=== PATIENT | male | born 1950 | race Caucasian/White ===

== ENCOUNTER → 2018-05-28 11:19 | Outpatient (CLI) | payer MEDICARE, OTHER, SELFPAY ==
--- NOTE | 2018-05-28 | DI.MRI.S_ITS ---
PROCEDURE: MR CERVICAL SPINE WO CON INDICATIONS: RADICULOPATHY CERVICAL REGION TECHNIQUE: Noncontrast sagittal T1 spin echo and T2 fast spin echo, sagittal STIR, foraminal oblique sagittal T2 fast spin echo, and axial gradient echo or T2 fast spin echo through the cervical spine. COMPARISON: None. FINDINGS: Image quality: Diagnostic Alignment and Curvature: There is normal bony alignment. Bone Marrow: Marrow demonstrates normal overall signal. Spinal Cord: Visualized spinal cord has normal size and signal. No cerebellar tonsillar herniation. Paraspinous Soft Tissues: No paravertebral masses. Prevertebral soft tissues are normal in thickness. C2-C3: No significant abnormality is seen. C3-C4: The disc height is well-preserved. Loss of disc signal is seen at this level. Mild disc osteophyte complex is seen, which is eccentric to the right. Mild bilateral neural foraminal narrowing is seen. Mild central canal narrowing is seen. C4-C5: The disc height is well-preserved. Loss of disc signal is seen at this level. A mild degree of generalized disc osteophyte complex is seen. Mild facet joint hypertrophy is seen. [id number] bilateral neural foraminal narrowing is seen. Mild central canal narrowing is seen. C5-C6: Moderate loss of disc height is seen. Loss of disc signal is seen. Moderate generalized disc osteophyte complex is seen. There is at least moderate bilateral neural foraminal narrowing seen. At least moderate central canal narrowing is seen. C6-C7: Mild to moderate loss of disc height and disc signal are seen. Moderate disc osteophyte complex is seen, which is eccentric to the left. A moderate facet hypertrophy is seen. There is moderate to severe bilateral neural foraminal narrowing seen, left worse than right. Moderate central canal narrowing is seen. C7-T1: No significant abnormality is seen. IMPRESSION: Cervical spine degenerative changes are seen, which are most prominent at the C5-C6 and C6-C7 levels. Dictated by: Eulalio Glasgow M.D. on 05/28/2018 at 13:10 Approved by: Eulalio Glasgow M.D. on 05/28/2018 at 13:17
== END ==
PROVIDERS: PCP Family Medicine; Visit Provider Physical Medicine & Rehabilitation Pain Medicine
DX: M47.22 Other spondylosis with radiculopathy, cervical region (principal)
CPT/HCPCS: 72141

== ENCOUNTER → 2018-08-21 12:24 | Outpatient (CLI) | payer MEDICARE, OTHER, SELFPAY ==
--- NOTE | 2018-08-21 | DI.US.S_ITS ---
PROCEDURE: US PERIPH VENOUS UP EXTREM LT INDICATIONS: PERSONAL HISTORY OF OTHER VENOUS THROMBOSIS TECHNIQUE: Real-time imaging, as well as color and pulse Doppler interrogation, was performed of the left upper extremity deep veins from the inferior neck to the antecubital fossa. COMPARISON: None. FINDINGS: The internal jugular vein, visualized portions of the subclavian vein, axillary, and brachial veins are free of intraluminal thrombus. Where physically possible, the veins are normally compressible. Color and pulse Doppler demonstrate normal intraluminal flow, with expected phasicity and pulsatility. Additional scanning of the cephalic and basilic veins of the superficial system demonstrate normal compressibility, without thrombus. IMPRESSION: No DVT found. Source of pain is not identified at the left upper extremity. Findings called to the ordering health care providers office, to be provided directly to Dr. Darling. Dictated by: Hakeem Yun M.D. on 08/21/2018 at 14:07 Approved by: Hakeem Yun M.D. on 08/21/2018 at 14:11
== END ==
PROVIDERS: PCP Family Medicine; Visit Provider Physical Medicine & Rehabilitation Pain Medicine
DX: M79.652 Pain in left thigh (principal); Z86.718 Personal history of other venous thrombosis and embolism
CPT/HCPCS: 93971

== ENCOUNTER → 2020-01-13 12:55 | Outpatient (CLI) | payer MEDICARE, OTHER, SELFPAY ==
--- NOTE | 2020-01-13 | DI.MRI.S_ITS ---
PROCEDURE: MR LUMBAR SPINE WO CON INDICATIONS: BACK PAIN TECHNIQUE: Noncontrast sagittal T1 spin echo and T2 fast echo, sagittal STIR, axial T1 and T2 fast spin echo through the lumbar spine. In cases with scoliosis, additional coronal T2 fast spin echo may be performed. COMPARISON: [facility] [place], CR, XR LUMBAR SPINE WITH OLBIQUES PLUS FLEXION EXTENSION, 01/06/2020, 10:14. FINDINGS: Image quality: Excellent. Alignment and Curvature: 5 lumbar type vertebral bodies are present by plain film. There is normal bony alignment. Bone Marrow: Marrow is of normal overall signal. No acute vertebral body compression fractures. Mild reactive signal within the endplates adjacent to the L2-L3, L3-L4, L4-L5, and L5-S1 intervertebral discs. Spinal Cord: Conus medullaris terminates at the upper L1 level. Visualized cord demonstrates normal signal and size. Paraspinous Soft Tissues: No paravertebral masses. L1-L2: Normal appearance. L2-L3: Mild disc desiccation and diffuse disc bulge. Mild bilateral facet and ligamentum flavum hypertrophy. Mild canal stenosis. Mild bilateral foraminal stenosis. L3-L4: Mild disc desiccation and diffuse disc bulge. Mild bilateral facet hypertrophy. Mild canal stenosis. Mild bilateral foraminal stenosis. L4-L5: Mild disc desiccation and diffuse disc bulge. Mild bilateral facet hypertrophy. Mild canal stenosis. Mild bilateral foraminal stenosis. L5-S1: Mild disc desiccation and diffuse disc bulge. Mild bilateral facet hypertrophy. Mild canal stenosis. Mild bilateral foraminal stenosis. IMPRESSION: 1. Multilevel degenerative disc and facet disease, as well as ligamentum flavum hypertrophy and epidural lipomatosis. 2. Mild multilevel canal and foraminal stenosis. No neural impingement. Dictated by: Amada Barrett M.D. on 01/13/2020 at 15:06 Approved by: Amada Barrett M.D. on 01/13/2020 at 15:08
== END ==
PROVIDERS: PCP Family Medicine; Referring Provider Family Medicine; Visit Provider Physical Medicine & Rehabilitation Pain Medicine
DX: M54.9 Dorsalgia, unspecified (principal); M51.36 Other intervertebral disc degeneration, lumbar region; M51.37 Other intervertebral disc degeneration, lumbosacral region; M48.061 Spinal stenosis, lumbar region without neurogenic claudication; M48.07 Spinal stenosis, lumbosacral region; E88.2 Lipomatosis, not elsewhere classified
CPT/HCPCS: 72148

== ENCOUNTER → 2020-07-01 11:22 | Outpatient (CLI) | payer MEDICARE, OTHER, SELFPAY ==
[2020-07-01 12:00] LABS: BUN Creatinine Ratio 20.5 (6-22); Blood Urea Nitrogen 39 mg/dL (9-20); Calcium 9.5 mg/dL (8.4-10.2); Carbon Dioxide 27 mmol/L (22-32); Chloride 104 mmol/L (98-107); Cholesterol 249 mg/dL (140-199); Estimated Glomerular Filt Rate 35.2 mL/min (>60); Glucose 124 mg/dL (80-110); HDL Cholesterol 40 mg/dL (40-60); HEMOLYSIS < 15 (0-50); LDL Cholesterol Calculated 134 mg/dL (<100); Sodium 137 mmol/L (137-145); Triglycerides 376 mg/dL (35-150)
[2020-07-01 14:57] LABS: Prostate Specific Antigen 0.085 ng/mL (0.10-4.00)
== END ==
PROVIDERS: PCP Student in an Organized Health Care Education/Training Program; Referring Provider Internal Medicine Nephrology; Visit Provider Student in an Organized Health Care Education/Training Program
DX: N18.32 Chronic kidney disease, stage 3b (principal); E78.2 Mixed hyperlipidemia; Z85.46 Personal history of malignant neoplasm of prostate; I25.2 Old myocardial infarction
CPT/HCPCS: 36415; 80048; 80061; 84153

== ENCOUNTER → 2020-07-07 08:56 | Outpatient (CLI) | payer MEDICARE, OTHER, SELFPAY ==
--- NOTE | 2020-07-07 08:57 | DI.US.S_ITS ---
PROCEDURE: US ABD AORTA ANEURYSM SCREEN INDICATIONS: ABDOMINAL AORTIC ANEURYSM SCREENING TECHNIQUE: Real time scanning was performed of the aorta and iliac arteries, with image documentation. COMPARISON: None. FINDINGS: Aorta: Proximal aortic diameter measures 0.9 cm. Mid-aorta measures 2.3 cm. Distal aortic diameter is 2.3 cm. Iliac arteries: Right common iliac artery measures 1.2 cm. Left common iliac artery measures 1.2 cm. IMPRESSION: The proximal aorta measures at the upper limits of normal at 2.9 cm AP. Dictated by: Eulalio Glasgow M.D. on 07/07/2020 at 8:39 Approved by: Eulalio Glasgow M.D. on 07/07/2020 at 8:41
== END ==
PROVIDERS: PCP Student in an Organized Health Care Education/Training Program; Referring Provider Student in an Organized Health Care Education/Training Program; Visit Provider Student in an Organized Health Care Education/Training Program
DX: Z13.6 Encounter for screening for cardiovascular disorders (principal); Z87.891 Personal history of nicotine dependence
CPT/HCPCS: 76706

== ENCOUNTER → 2020-08-03 09:10 | Outpatient (CLI) | payer MEDICARE, OTHER, SELFPAY ==
[2020-08-03 10:19] LABS: Add Manual Diff / Slide Review NO; Basophils Absolute Auto 100 /uL (0-100); Basophils Percent Auto 0.7 % (0-2); Eosinophils Absolute Auto 200 /uL (0-450); Eosinophils Percent Auto 2.1 % (2-4); Hematocrit 38.8 % (41-53); Hemoglobin 13.4 g/dL (13.5-17.5); Lymphocytes Absolute Auto 1500 /uL (1100-4500); Mean Corpuscular HGB Conc 34.5 % (30-36); Mean Corpuscular Hemoglobin 30.4 PG (26-34); Monocytes Absolute Auto 500 /uL (0-900); Monocytes Percent Auto 6.4 % (3-14); Neutrophils Absolute Auto 5100 /uL (1500-7000); Neutrophils Percent Auto 69.8 % (50-75); Platelet Count 261 X10^3/uL (150-400); Red Blood Cell Count 4.41 X10^6/uL (4.5-5.9); Red Cell Distribution Width 12.5 % (11.6-14.8); White Blood Cell Count 7.2 X10^3/uL (4.5-11.0)
[2020-08-03 10:38] LABS: BUN Creatinine Ratio 20.1 (6-22); Blood Urea Nitrogen 33 mg/dL (9-20); Calcium 9.4 mg/dL (8.4-10.2); Carbon Dioxide 27 mmol/L (22-32); Chloride 102 mmol/L (98-107); Estimated Glomerular Filt Rate 41.7 mL/min (>60); Glucose 139 mg/dL (80-110); HEMOLYSIS < 15 (0-50); Potassium 4.3 mmol/L (3.4-5.1); Sodium 138 mmol/L (137-145)
[2020-08-03 11:12] LABS: Prostate Specific Antigen 0.072 ng/mL (0.10-4.00)
== END ==
PROVIDERS: PCP Student in an Organized Health Care Education/Training Program; Referring Provider Internal Medicine Nephrology; Visit Provider Internal Medicine Nephrology
DX: N18.32 Chronic kidney disease, stage 3b (principal); R97.20 Elevated prostate specific antigen [PSA]; Z79.899 Other long term (current) drug therapy
CPT/HCPCS: 36415; 80048; 84153; 85025

== ENCOUNTER → 2020-09-15 08:51 | Outpatient (CLI) | payer MEDICARE, OTHER, SELFPAY ==
[2020-09-15 09:41] LABS: Add Manual Diff / Slide Review NO; Basophils Absolute Auto 0 /uL (0-100); Basophils Percent Auto 0.4 % (0-2); Eosinophils Absolute Auto 200 /uL (0-450); Eosinophils Percent Auto 2.2 % (2-4); Hematocrit 39.2 % (41-53); Hemoglobin 13.4 g/dL (13.5-17.5); Lymphocytes Absolute Auto 1500 /uL (1100-4500); Lymphocytes Percent Auto 19.1 % (25-40); Mean Corpuscular HGB Conc 34.3 % (30-36); Mean Corpuscular Hemoglobin 30.3 PG (26-34); Mean Corpuscular Volume 88.3 fL (80-100); Monocytes Absolute Auto 500 /uL (0-900); Monocytes Percent Auto 6.4 % (3-14); Neutrophils Absolute Auto 5800 /uL (1500-7000); Neutrophils Percent Auto 71.9 % (50-75); Platelet Count 244 X10^3/uL (150-400); Red Blood Cell Count 4.44 X10^6/uL (4.5-5.9); Red Cell Distribution Width 12.7 % (11.6-14.8)
[2020-09-15 09:55] LABS: Hemoglobin A1C% w Est Avg Glu 6.5 % (4.0-6.0)
[2020-09-15 10:42] LABS: Carbon Dioxide 28 mmol/L (22-32); Chloride 102 mmol/L (98-107); HEMOLYSIS < 15 (0-50); Potassium 4.5 mmol/L (3.4-5.1); Sodium 139 mmol/L (137-145)
== END ==
PROVIDERS: PCP Student in an Organized Health Care Education/Training Program; Referring Provider Orthopaedic Surgery Adult Reconstructive Orthopaedic Surgery; Visit Provider Orthopaedic Surgery Adult Reconstructive Orthopaedic Surgery
DX: R73.9 Hyperglycemia, unspecified (principal); Z01.812 Encounter for preprocedural laboratory examination; Z01.818 Encounter for other preprocedural examination
CPT/HCPCS: 36415; 80051; 83036; 85025

== ENCOUNTER → 2020-10-05 09:11 | Outpatient (CLI) | payer MEDICARE, OTHER, SELFPAY ==
[2020-10-05 11:19] LABS: COVID19 -Nasal RAPID Negative (Negative)
== END ==
PROVIDERS: PCP Student in an Organized Health Care Education/Training Program; Visit Provider Student in an Organized Health Care Education/Training Program
DX: Z01.812 Encounter for preprocedural laboratory examination (principal); Z20.822 Contact with and (suspected) exposure to COVID-19
CPT/HCPCS: 87635; C9803

== ENCOUNTER 2020-10-08 13:05 | Inpatient (IN) | payer MEDICARE, OTHER, SELFPAY ==
[2020-09-30 09:21] VITALS: BMI 34.4
[2020-10-07] VITALS (18 sets, daily range): BP systolic 137–166; BP diastolic 58–96; PULSE 56–72; RESP 11–19; TEMP 36.3–36.7; O2SAT 93–99; BMI 34.8
--- NOTE | 2020-10-07 07:37 | DI.RAD.S_ITS ---
PROCEDURE: XR KNEE LT 1TO2V INDICATIONS: post-op TECHNIQUE: 2 views of the knee were acquired. COMPARISON: None. FINDINGS: Bones: Expected alignment of left knee arthroplasty. No acute fracture identified. Soft tissues: No joint effusion. No suspicious soft tissue calcifications. IMPRESSION: Expected alignment Dictated by: Aristides Julio M.D. on 10/07/2020 at 17:13 Approved by: Aristides Julio M.D. on 10/07/2020 at 17:14
[2020-10-07] MEDS: CELECOXIB 200 MG CAPSULE PO (12:17)
[2020-10-07] MEDS: LACTATED RINGERS 1,000 ML 100 ML IV ×2 (12:39→14:30)
--- NOTE | 2020-10-07 12:42 | PM.PREOP ---
Pre-operative Note COVID-19 COVID-19 status: Negative Result date/Date tested (Pos, Neg/Pending): 10/05/20 Interval Note History & Physical reviewed/Exam performed by Physician: Yes Changes to H&P: No H&P completed within 30 days and has changed as indicated here:: Plan for L TKA
[2020-10-07] MEDS: CEFAZOLIN 1 GM VIAL 2 GM IV ×2 (13:35→22:17)
[2020-10-07] MEDS: TRANEXAMIC ACID 1,000 MG VIAL 2000 MG INJ ×2 (13:40→14:55)
--- NOTE | 2020-10-07 13:59 | SUR.OPER ---
Supine on padded OR bed. Pillow under head, arms secured on padded armboards <90 degree abduction. Safety belt across torso. Non-operative leg, right leg secured with tape over blanket over lower leg and gel pad under heel. Operative leg, Left leg, in control of the surgeon, Dr. Cantrell padded positioner used under drapes. Foam padded brace at thigh of operative leg.
[2020-10-07] MEDS: ROPIVACAINE 0.5% PF 5 MG/ML 20ML VIAL 10 ML INJ (14:04)
[2020-10-07] MEDS: MORPHINE 4 MG/ML INJ IM (14:05)
[2020-10-07] MEDS: POVIDONE-IODINE SPONGE STICKS 1 APPLIC TOP (14:06)
[2020-10-07] MEDS: VANCOMYCIN 1,000 MG VIAL 1000 MG TOP (14:36)
--- NOTE | 2020-10-07 15:32 | PM.OP.1 ---
Operative Date/Time/Diagnoses Date of procedure: 10/07/20 Time of procedure: 15:32 Pre-op diagnosis: left knee OA Post-op diagnosis: same Procedure & Clinicians Procedure: left TKA Same procedure as scheduled: Yes Indications: Left knee osteoarthritis resistant to further conservative measures Surgeon: Darin Cantrell Food Beverage Manager: Shahriar Geller Anesthesia Type: General and Spinal Operative Notes Findings: [id number] articulation of the medial compartment large osteophytes throughout the knee. Closure Type: primary Specimen(s): none sent Prosthetic devices, grafts, tissues, transplants, or devices: Diaz and nephew Journey 2 CR Oxinium femur size 6, left Journey size 6, left tibial base plate Size 5-6, left 9 mm thick Journey 2 polyethylene deep dish CR 35 mm oval Kathleen 2 patellar button Estimated Blood Loss (mL): 150 Tourniquet time (min): 59 Procedure in detail: Patient was met in the preoperative holding area where the site and side of surgery marked by MD. All last minute questions were answered. Informed consent had been reviewed and signed in clinic was also reviewed the preoperative area and all last minute questions were answered. Patient was then brought back in the operating room received a spinal anesthetic and was then placed supine on operating room table induced under general anesthesia. A nonsterile tourniquet was placed on left thigh the left lower extremity then prepped and draped in normal sterile fashion. A surgical time-out was performed verifying the site and side of surgery as well as the name of the patient. A Esmarch was then used to exsanguinate the left lower extremity and the tourniquet was inflated to 150 mmHg. A longitudinal incision over the left knee was then made in the skin with a 10. Blade. A new 10. Blade was then used to elevate medial lateral flaps. The medial parapatellar arthrotomy was then marked and made. Hoffa's fat pad was then removed in medial peel was then performed. ACL was then removed as well as the lateral meniscus. Gotham's line was then marked with electrocautery and the drill was then used into the femoral canal and tibial canal sequentially. Intramedullary jarod was then placed inside the femur and the cutting guide was then placed on the intramedullary jarod and pinned in neutral position because the patient had a preop flexion contracture 2 mm extra distal femoral cut was then made. Intramedullary was then removed and placed inside the tibia. The out foxpro developer was then placed on the intramedullary jarod inside the tibia and the cutting jig was then pinned into place using the outrigger. This was verified with a drop jarod. The tibial cut was then made. Bone was then removed the knee was then brought into full extension and a 9 mm extension block fit in the extension space and was balance medial and lateral. Knee was then brought into flexion gap sephora operations consultant was then placed drill holes for the 5 1 cutting block we then drilled through the gap sephora operations consultant which showed external rotation. The femur was then sized to a size 6. A size size 6 5 in 1 cutting block was then placed on and the femur and all 5 cuts were then made sequentially. The size 6 trial component was then placed onto the femur a size 6 tibial base plate with a 9 mm thick polyethylene was then placed and the knee was brought through range of motion was noted that in flexion the PCL was quite tight not allowing rollback. A 15 blade was then used to pie crust the PCL in 3 places. This improved the kinematics. The tibial plate rotation was marked using a floating technique. Next the patella was then cut using freehand technique and sized to size 32 mm patellar button. This was then drilled for and placed. The patella tracked through flexion-extension range of motion the knee. This point all trial components were then removed. The tibial base plate was then placed back on side to the tibia and pinned in place and the keel was then drilled and punched. Periarticular local anesthetic injection was then performed. The cut surface of the tibia femur and patella were then irrigated using pulse lavage normal saline and then dried. Cement was then finger packed into the keel hole as well as the tibial cut surface and cement was placed on the undersurface of the tibial base plate. This was then malleted into place and excess cement was removed. Set was then finger packed on the cut surface of the femur with exception the posterior condylar cut set was placed on the feet of the femoral component malleted into place excess cement was removed. A size 9 mm thick CR trial was then placed knee was brought to full extension and held in internal rotation the patella cut surface then had cement placed onto as well as between the buttons of the patellar component and this was clamped into place and excess cement was removed. Betadine solution was then placed in the wound allowed to sit for several minutes prior to being lavage with copious normal saline. Tourniquet was let down at 59 minutes to time. Electrocautery was used to gain hemostasis. Once the cement was fully cured the trial component was removed excess cement was removed. And a size 9 mm thick size 5-6 left deep dish CR was then selected and placed should the medial lateral tabs were well seated. The medial parapatellar arthrotomy was then closed using 1. Vicryl interrupted fashion followed by running Quill suture followed by 2-0 Vicryl interrupted fashion the subcutaneous layer followed by running 3-0 Stratafix in subcuticular layer followed by Dermabond and a EBONI dressing. Complications: none Post-operative Condition: stable Disposition: PACU Plan for aftercare: 24 hours postop antibiotics, aspirin 81 mg b.i.d. for 6 weeks for DVT prophylaxis, weight-bearing as tolerated left lower extremity. Avoid NSAIDs.
--- NOTE | 2020-10-07 16:04 | SUR.PHASEI ---
HR noted to be irregular. Dr Zhu notified and to bedside to evaluate. See new orders. EEKG begin done at this time at bedside. Pt denies any chest pain, SOB or any irregularities at this time. Pt states that on his sleep study that they found he was in AFIB for short periods of time, about 1 min.
--- NOTE | 2020-10-07 16:30 | SUR.PHASEI ---
1614 Dr Zhu at bedside to view EKG. Pt doing deep breathing per MD. 1619 Pt stated he had a small amount of pressure to left of xiphoid process rating pressure 2/10 on scale of 1-10 and that it felt like someone was pushing a little on his chest at that spot. Dr Zhu in to see patient again and pressed on chest. Pt stated he felt like the pain was deep inside. CK/Trop labs added to blood drawn and sent to lab. Pt states it is not the kind of pain he would take Nitroglycerin for. 1634 Pt states the pressure a little bit better now.
--- NOTE | 2020-10-07 16:41 | SUR.PHASEI ---
Pressure to chest mostly resolved. Taking ice chips.
[2020-10-07 16:44] LABS: BUN Creatinine Ratio 19.7 (6-22); Blood Urea Nitrogen 29 mg/dL (9-20); Calcium 8.7 mg/dL (8.4-10.2); Carbon Dioxide 25 mmol/L (22-32); Chloride 105 mmol/L (98-107); Creatine Kinase 48 U/L (55-170); Estimated Glomerular Filt Rate 47.4 mL/min (>60); Glucose 138 mg/dL (80-110); HEMOLYSIS < 15 (0-50); Sodium 136 mmol/L (137-145)
[2020-10-07 16:56] LABS: Troponin I < 0.012 ng/mL (0.01-0.034)
--- NOTE | 2020-10-07 17:02 | SUR.PHASEI ---
Dr Zhu called on cell phone per MD request. Msg left for return call for Potassium 6.0
--- NOTE | 2020-10-07 17:37 | SUR.PHASEI ---
Dr Cantrell called and notified of patient intermittent irregular HR, EKG done, labs ordered and Dr Zhu who saw patient and was notified of Potassium 6.0. LR stopped per Dr Zhu. Notified MD of patient itching to eyes which are slightly red and skin looks bruised from tape to eyes. Pt also complaining of itching to groin area, not redness or rash. Order for oral Benadryl received. MD transferred to Hospitalist.
--- NOTE | 2020-10-07 17:40 | SUR.PHASEI ---
[address] Zhu called on cell phone. Notified of Potassium 7.0. LR stopped. to notify Dr Cantrell and patient ok to transfer to floor on telemetry pending evaluation by Hospitalist.
--- NOTE | 2020-10-07 17:50 | SUR.PHASEI ---
1730 Pt transferred on bed to room 209. Handoff at bedside given to Mounika RN and update given to . Bed in low position, call light in reach.
[2020-10-07] MEDS: diphenhydrAMINE 25 MG TABLET PO (18:17)
[2020-10-07] MEDS: ASPIRIN 325 MG TABLET PO (18:27)
[2020-10-07] MEDS: DEXTROSE 50 % IN WATER 25 GM/50 ML SYRINGE IV (18:29)
[2020-10-07] MEDS: INSULIN REGULAR 100 UNIT/ML 3 ML VIAL 10 UNIT IV (18:30)
[2020-10-07] MEDS: CALCIUM GLUCONATE 4.65 MEQ in SODIUM CHLORIDE 0.9% 50 ML 180 ML IV (18:30)
[2020-10-07] MEDS: SODIUM CHLORIDE 0.9% 1,000 ML 100 ML IV (18:31)
[2020-10-07] MEDS: BUDESONIDE 0.5 MG/2 ML NEB INH (20:06)
[2020-10-07] MEDS: diphenhydrAMINE 50 MG/ML VIAL IV (20:11)
[2020-10-07 21:20] LABS: Creatine Kinase 59 U/L (55-170)
[2020-10-07 21:21] LABS: BUN Creatinine Ratio 19.3 (6-22); Blood Urea Nitrogen 29 mg/dL (9-20); Calcium 9.3 mg/dL (8.4-10.2); Carbon Dioxide 24 mmol/L (22-32); Chloride 104 mmol/L (98-107); Estimated Glomerular Filt Rate 46.3 mL/min (>60); Glucose 208 mg/dL (80-110); HEMOLYSIS < 15 (0-50); Potassium 5.2 mmol/L (3.4-5.1); Sodium 137 mmol/L (137-145)
[2020-10-07 21:33] LABS: Troponin I < 0.012 ng/mL (0.01-0.034)
--- NOTE | 2020-10-07 21:38 | PM.CN ---
History of Present Illness Consult details Date Patient Seen: 10/07/20 Time Patient Seen: 18:00 Chief complaint: OPB Reason for consult: Chest pain, hyperkalemia Requesting provider: Darin Cantrell Narrative: Mr. Zamarripa is a 70M with PM COPD, HTN, CAD, obesity, VITALIY, CKD who came in to the hospital today after an elective left TKA. After the surgery he was noted to have chest pain. He described this as in the lower part of his sternum. He noted the pain as sharp in his ribs. He noted slight shortness of breath. No radiation of the pain. The pain resolved on its own by the time I saw him. He did get an EKG perioperatively that showed no acute ischemia and is similar compared to prior. Initial troponin was checked and was noted to negative. In addition, consult is requested to manage his potassium. In the post operative setting he had stat labs drawn which were notable for a potassium of 6.0. His ekg showed no peaked T waves. His creatinine is 1.47, and his previous creatinine in the emr are 1.64-1.9. The patient states he has had elevated potassium in the past. He does feel slightly dehydrated. Otherwise he has no complaints. Meds Home Medications and Allergies Home Medications Medication Instructions Recorded Confirmed Type Resmed Airsense 10 CPAP #1 ea 09/13/18 12/25/18 History albuterol sulfate 90 mcg/actuation 2 puff INHALATION Q4-6H PRN 07/01/20 10/07/20 History aerosol inhaler aspirin 81 mg tablet,delayed 81 mg PO DAILY 07/01/20 10/07/20 History release clonidine HCl 0.2 mg tablet 0.2 mg PO BID 07/01/20 10/07/20 History fluticasone 250 mcg-salmeterol 50 1 inh INHALATION BID 07/01/20 10/07/20 History mcg/dose blistr powdr for inhalation fluticasone furoate 27.5 2 spray INTRANASAL DAILY 07/01/20 10/07/20 History mcg/actuation nasal spray,suspension furosemide 40 mg tablet 40 mg PO DAILY 07/01/20 10/07/20 History nitroglycerin 0.4 mg sublingual 0.4 mg SUBLINGUAL Q5M PRN 07/01/20 09/30/20 History tablet omeprazole 20 mg capsule,delayed 20 mg PO DAILY cap 07/01/20 10/07/20 History release tamsulosin 0.4 mg capsule 0.4 mg PO DAILY 07/01/20 10/07/20 History gabapentin 800 mg tablet 400 mg PO TID tab 07/06/20 10/07/20 History carbamazepine 100 mg 100 mg PO BID #180 tab 07/29/20 10/07/20 Rx tablet,extended release,12 hr lovastatin 20 mg tablet 20 mg PO DAILY #90 tab 07/29/20 10/07/20 Rx Allergies Allergy/AdvReac Type Severity Reaction Status Date / Time adhesive tape Allergy Severe Eats my Verified 10/07/20 11:57 skin epinephrine Allergy Severe chest pain Verified 10/07/20 11:57 hydrocodone [From Vicodin] Allergy Severe rash Verified 10/07/20 11:57 severe itching Iodinated Contrast Media Allergy Severe hives, Verified 10/07/20 11:57 trouble breathing tramadol Allergy Severe severe Verified 10/07/20 11:57 vertigo attack iodine Allergy Intermediate Rash Verified 10/07/20 11:57 lisinopril Allergy Intermediate affected Verified 10/07/20 11:57 kidney function clarithromycin [From Biaxin] Allergy Mild rash Verified 10/07/20 11:57 minocycline Allergy Mild rash Verified 10/07/20 11:57 moxifloxacin [From Avelox] Allergy Mild rash Verified 10/07/20 11:57 Penicillins Allergy Mild rash Verified 07/01/20 10:20 propoxycaine Allergy Mild rash Verified 07/01/20 10:26 Sulfa (Sulfonamide Allergy Mild rash Verified 07/01/20 10:26 Antibiotics) atorvastatin AdvReac Intermediate Dizziness Verified 07/01/20 10:58 pregabalin [From Lyrica] AdvReac Vertigo Verified 09/30/20 12:06 perfumes Allergy Intermediate SOB, Uncoded 09/30/20 10:21 throat closing Review of Systems Review of Systems Narrative: 14 systems reviewed and negative aside from HPI Exam Vital Signs (past 8 hours): - 10/07/20 15:37 10/07/20 15:42 10/07/20 15:47 Temperature 97.6 F Pulse Rate 70 72 62 Respiratory Rate 12 12 12 Blood Pressure 137/58 L 144/77 H 139/77 Pulse Oximetry 95 96 94 10/07/20 15:52 10/07/20 16:02 10/07/20 16:07 Temperature Pulse Rate 59 L 58 L 62 Respiratory Rate 12 13 15 Blood Pressure 150/71 H 159/69 H 162/71 H Pulse Oximetry 95 95 96 10/07/20 16:28 10/07/20 16:42 10/07/20 17:04 Temperature Pulse Rate 56 L 65 62 Respiratory Rate 19 18 11 L Blood Pressure 158/70 H 166/76 H 165/81 H Pulse Oximetry 97 97 95 10/07/20 17:18 10/07/20 17:30 10/07/20 18:00 Temperature 97.5 F L 97.3 F L Pulse Rate 57 L 64 62 Respiratory Rate 12 15 16 Blood Pressure 165/58 H 149/93 H 150/96 H Pulse Oximetry 93 95 96 10/07/20 18:30 10/07/20 19:30 10/07/20 20:06 Temperature 97.6 F 97.5 F L Pulse Rate 61 69 59 L Respiratory Rate 16 16 16 Blood Pressure 148/77 H 164/86 H Pulse Oximetry 94 94 96 10/07/20 20:30 Temperature 97.7 F Pulse Rate 59 L Respiratory Rate 15 Blood Pressure 164/82 H Pulse Oximetry 95 Oxygen Delivery Method Room Air Oxygen Flow Rate 0 Narrative Exam Narrative: GEN: no acute distress HEENT: dry mucous membranes, PERRL NECK: trachea midline, no JVD CV: regular rate and rhythm with no murmurs PULM: clear bilaterally, no wheezes, rhonchi, rales ABD: soft, nontender, nondistended, no organomegaly EXT: warm and well perfused with no edema NUERO: awake and alert, moving all extremities Objective Labs Result Diagrams: 10/07/20 21:00 10/07/20 21:00 Labs: Laboratory Results - last 24 hr 10/07/20 10/07/20 10/07/20 16:15 16:15 21:00 Sodium 136 L Potassium 6.0 H Chloride 105 Carbon Dioxide 25 BUN 29 H Creatinine 1.47 H Estimated GFR 47.4 L BUN/Creatinine Ratio 19.7 Glucose 138 H Calcium 8.7 Total Creatine Kinase 48 L 59 CK-MB (CK-2) TNP TNP CK-MB (CK-2) Rel Index TNP TNP Troponin I < 0.012 < 0.012 10/07/20 21:00 Sodium 137 Potassium 5.2 H Chloride 104 Carbon Dioxide 24 BUN 29 H Creatinine 1.50 H Estimated GFR 46.3 L BUN/Creatinine Ratio 19.3 Glucose 208 H Calcium 9.3 Total Creatine Kinase CK-MB (CK-2) CK-MB (CK-2) Rel Index Troponin I Assessment & Plan Assessment & Plan narrative: Mr. Zamarripa is a 70M with PMH CKD, CAD, VITALIY, HTN who underwent L TKA and afterwards developed chest pain and found to have hyperkalemia 1. Hyperkalemia -in postoperative setting hyperkalemia is most likely from hypovolemia, or intraoperative fluid shifts -patient at higher risk of developing this due to CKD -CK negative, no evidence of rhabdo, also no metabolic acidosis -elevated to 6.0 postoperatively -no EKG changes noted -ordered for insulin, dextrose, calcium gluconate, kayexelate -recheck potassium in 3 hours -avoid lactated ringers, order low potassium diet -IVF with NS 2. CKD stage 3 -risk factor for developing hyperkalemia -attempt to keep euvolemic -avoid nsaids -current medications appear to not be nephrotoxic 3. Chest pain -patient at higher risk for having cardiac event -noted brief episode of chest discomfort after surgery -now completely resolved -etiologies are many, but may be medication effect or from fluid shifts -initial ekg did not show ischemia -first troponin negative -trend troponins -ordered for aspirin and statin -pending clinical course, may benefit from further cardiac workup as outpatient Thank you for this consult. We will continue to follow along.
[2020-10-07] MEDS: DOCUSATE 100 MG CAPSULE PO (22:15)
[2020-10-07] MEDS: ACETAMINOPHEN 325 MG TABLET 650 MG PO (22:15)
[2020-10-07] MEDS: carBAMazepine XR 100 MG TAB PO (22:15)
[2020-10-07] MEDS: cloNIDine 0.1 MG TABLET 0.2 MG PO (22:16)
[2020-10-07] MEDS: SODIUM POLYSTYRENE SULFON/SORB 15 GM/60 ML CUP 30 GM PO (22:17)
[2020-10-07] MEDS: GABAPENTIN 100 MG CAPSULE 400 MG PO (22:17)
[2020-10-08 00:10] VITALS: BP 116/67; PULSE 63; RESP 15; TEMP 36.6; O2SAT 96
[2020-10-08] MEDS: OXYCODONE IR 5 MG TABLET PO ×4 (02:24→15:50)
[2020-10-08 04:23] LABS: Hematocrit 36.4 % (41-53); Hemoglobin 12.1 g/dL (13.5-17.5)
[2020-10-08 04:31] LABS: BUN Creatinine Ratio 18.7 (6-22); Blood Urea Nitrogen 31 mg/dL (9-20); Calcium 8.6 mg/dL (8.4-10.2); Carbon Dioxide 25 mmol/L (22-32); Chloride 103 mmol/L (98-107); Estimated Glomerular Filt Rate 41.2 mL/min (>60); Glucose 140 mg/dL (80-110); HEMOLYSIS < 15 (0-50); Potassium 5.2 mmol/L (3.4-5.1); Sodium 135 mmol/L (137-145)
[2020-10-08 04:42] LABS: Troponin I < 0.012 ng/mL (0.01-0.034)
[2020-10-08] MEDS: CEFAZOLIN 1 GM VIAL 2 GM IV (05:09)
[2020-10-08] MEDS: PANTOPRAZOLE DR 20 MG TABLET PO (05:10)
[2020-10-08 05:16] VITALS: BP 120/60; PULSE 64; RESP 16; TEMP 36.9; O2SAT 95
[2020-10-08] MEDS: diphenhydrAMINE 50 MG/ML VIAL IV (05:23)
[2020-10-08] MEDS: BUDESONIDE 0.5 MG/2 ML NEB INH (07:02)
[2020-10-08 07:03] VITALS: PULSE 60; RESP 16; O2SAT 96
[2020-10-08 07:38] VITALS: BP 162/79; PULSE 58; RESP 18; TEMP 36.9; O2SAT 96
--- NOTE | 2020-10-08 08:01 | PM.PNPO.1 ---
Subjective Subjective Date Patient Seen: 10/08/20 Time Patient Seen: 08:01 Interval history: Pain is mild. Denies fever or chills. No nausea or vomiting. No shortness of breath or chest pain. Exam Vital Signs (past 8 hours): - 10/08/20 00:10 10/08/20 05:16 10/08/20 07:03 Temperature 97.9 F 98.5 F Pulse Rate 63 64 60 Respiratory Rate 15 16 16 Blood Pressure 116/67 120/60 Pulse Oximetry 96 95 96 Oxygen Delivery Method Room Air Oxygen Flow Rate 0 Narrative Exam Narrative: 70-year-old male resting comfortably in bedside chair in no apparent distress. Jody dressing is on and functioning. Dressing is Clean, dry, intact.. Motor functions intact bilateral lower extremities. Sensation grossly intact to light touch bilateral lower extremities. Objective Labs Result Diagrams: 10/08/20 04:05 10/08/20 04:05 Labs: Laboratory Results - last 24 hr 10/07/20 10/07/20 10/07/20 16:15 16:15 21:00 Hgb Hct Sodium 136 L Potassium 6.0 H Chloride 105 Carbon Dioxide 25 BUN 29 H Creatinine 1.47 H Estimated GFR 47.4 L BUN/Creatinine Ratio 19.7 Glucose 138 H Calcium 8.7 Total Creatine Kinase 48 L 59 CK-MB (CK-2) TNP TNP CK-MB (CK-2) Rel Index TNP TNP Troponin I < 0.012 < 0.012 10/07/20 10/08/20 10/08/20 21:00 04:05 04:05 Hgb 12.1 L Hct 36.4 L Sodium 137 Potassium 5.2 H Chloride 104 Carbon Dioxide 24 BUN 29 H Creatinine 1.50 H Estimated GFR 46.3 L BUN/Creatinine Ratio 19.3 Glucose 208 H Calcium 9.3 Total Creatine Kinase CK-MB (CK-2) CK-MB (CK-2) Rel Index Troponin I < 0.012 10/08/20 04:05 Hgb Hct Sodium 135 L Potassium 5.2 H Chloride 103 Carbon Dioxide 25 BUN 31 H Creatinine 1.66 H Estimated GFR 41.2 L BUN/Creatinine Ratio 18.7 Glucose 140 H Calcium 8.6 Total Creatine Kinase CK-MB (CK-2) CK-MB (CK-2) Rel Index Troponin I [facility] Medical History Asthma Blood clot in vein (2001) COPD (chronic obstructive pulmonary disease) Degenerative disc disease, cervical Depression Fatty liver GERD (gastroesophageal reflux disease) Hearing impaired HTN (hypertension) Hx of coronary angiogram Musculoskeletal pain of left lower extremity Myocardial infarction (1994) Obesity (BMI 30-39.9) Obstructive sleep apnea of adult Pain of left upper extremity Prediabetes Primary insomnia Prostate cancer (~2003) Renal cell carcinoma (2002) Rosacea Vertigo (2001) Surgical History History of vasectomy Hx of arthroscopy of left knee Hx of bilateral cataract extraction (2017) Hx of eye surgery (1999) Hx of partial nephrectomy (06/2002) Hx of sinus surgery Hx of varicose vein stripping (1977) Social History marital status: details: maura Mcguire, lives in [place] household members: spouse lives independently: Yes caregiver/support person: No housing: house Smoking Status: Never smoker alcohol intake: current substance use type: does not use Assessment & Plan Post-op Postoperative Procedures: Procedures Operation Date: 10/07/20 13:15 Actual Procedures Side Surgeon p Total Knee Arthroplasty Left Darin Cantrell MD Postop day 1 status post left total knee arthroplasty. Weightbearing as tolerated. Aspirin 81 mg b.i.d. for 6 weeks. Avoid NSAIDs. Hospitalist consultation for chest pain and hyperkalemia yesterday afternoon. Appreciate hospitalist following. Discharge home when stable per hospitalist.
[2020-10-08] MEDS: ACETAMINOPHEN 325 MG TABLET 650 MG PO ×2 (08:40→15:12)
[2020-10-08] MEDS: ASPIRIN EC 81 MG TABLET PO (08:41)
[2020-10-08] MEDS: ATORVASTATIN 20 MG TABLET 40 MG PO (08:41)
[2020-10-08] MEDS: cloNIDine 0.1 MG TABLET 0.2 MG PO (08:41)
[2020-10-08] MEDS: TAMSULOSIN 0.4 MG CAPSULE PO (08:41)
[2020-10-08] MEDS: GABAPENTIN 100 MG CAPSULE 400 MG PO ×2 (08:41→15:11)
[2020-10-08] MEDS: FLUTICASONE 120 SPRAY/16 GM SPRAY.SUSP NASAL (08:41)
[2020-10-08] MEDS: DOCUSATE 100 MG CAPSULE PO (08:41)
[2020-10-08] MEDS: carBAMazepine XR 100 MG TAB PO (08:41)
--- NOTE | 2020-10-08 09:03 | CM.DANOTE ---
DCP: Case received, EMR reviewed and met with patient. Introduced self and role. Was able to obtain information regarding patient's baseline activity status prior to surgery, as well as his current living situation. DCP assessment completed with information currently available. Patient is a 70 year old male who admitted yesterday morning to the care of the orthopedic team. PCP: Dr. Casper. P[facility]: [facility]. Patient came to the hospital via private vehicle for a surgical procedure. Patient had a left total knee arthroplasty. Patient has history of osteoarthritis of his left knee. Met with patient in his room. He is alert and oriented. Confirmed with him that he resides in [place] with his spouse, Lavern. He is retired, and independent at his baseline. He does have a cane that he uses when he goes outside on uneven ground, and has been driving. Patient indicated that he has two steps to get into his home. He is set up with outpatient P.T. at [facility] in [place]. P: DCP to continue to follow. Patient should be able to go home when he is medically stable and cleared by P.T. Ruma Jimenez RN/Pc Analyst
--- NOTE | 2020-10-08 10:05 | PT.IPTN ---
Current Diagnoses Unilateral primary osteoarthritis, left knee (10/07/20) Surgery Performed Operation Date: 10/07/20 13:15 Actual Procedures p Total Knee Arthroplasty(Left) - Darin Cantrell MD Physical Therapy Treatment Note M2 PT-IP Current Condition Start: 10/08/20 12:05 Freq: NEEDED Status: Active Protocol: Document 10/08/20 10:05 AB (Rec: 10/08/20 12:48 AB [email or web address]) Physical Therapy Current Condition Current Condition Evaluation Date 10/08/20 Treatment Diagnosis s/p L TKA; difficulty in walking Onset Date 10/07/20 Weight Bearing Status Weight Bearing Status Weight Bear as Tolerated Allowed Weight Bearing Amount (enter % LLE WBAT or #) (%) M3 PT-IP Subjective Start: 10/08/20 12:05 Freq: NEEDED Status: Active Protocol: Document 10/08/20 10:05 AB (Rec: 10/08/20 12:48 AB [email or web address]) Subjective Physical Therapy Visit Type Type Initial Evaluation Visit Start Time 10:05 Visit Stop Time 10:55 Total Visit Minutes 50 Number of FIXED CAPITAL CLERK Visits 0 Physical Therapy Visit Comments Patient Comments pt is agreeable to do PT Therapy Pain Assessment Pain When Pain Assessed At Rest Pain Present Pain Present Pain Reported Location left knee Scale Used pain scale not stated but c/o increase with movement Pain Management Techniques Apply Cold,Modification of Treatment,Re-positioning, Timing of Activity with Medications M4 PT-IP Mobility and Gait Start: 10/08/20 12:05 Freq: NEEDED Status: Active Protocol: Document 10/08/20 10:05 AB (Rec: 10/08/20 12:48 AB [email or web address]) PT-Bed Mobility Assessment Supine to Sit Supine to Sit Standby Assistance Sit to Supine Sit to Supine Standby Assistance PT-Transfer Assessment Sit to and From Stand Sit to and from Stand Contact Guard Assistance, Minimal Assistance,1 Person Assistance,Use of Upper Extremities Equipment Transfer Assistive Device Gait Belt,Front Wheeled Walker Orthotic/Prosthetic Devices or Brace: No Transfers Transfer Destination Bed,Chair Transfer Technique Stand Step Pivot Transfer Ability Level of Assist Contact Guard Assistance, Minimal Assistance,1 Person Assistance,Use of Upper Extremities Gait Assessment Gait Gait Assistance Required: Contact Guard Assist,Minimum Assistance,1 Person Assist Distance (Feet) 75 Able to Maintain Weight Bearing Status Yes During Gait Assistive Devices Assistive Device Gait Belt,Front Wheeled Walker Orthotic/Prosthetic Devices or Brace: No Gait Deviations General Gait Pattern Antalgic,Decreased Stride Length,Decreased Feet Clearance,Step-to Gait Factors Limiting Gait Function Factors Limiting Gait Function Decreased Activity Tolerance, Decreased Strength,Difficulty Following Directions,Limited Range of Motion,Poor Balance, Poor Safety Awareness Stair Climbing Assessment Evaluation Level of Assist On Stairs Minimal Assistance,1 Person Assistance Devices Stair Climbing Assistive Devices Right Railing Technique/Endurance Stair Climbing Direction Ascend and Descend Stair Climbing Technique Step to Step Number of Steps Climbed 3 Stair Climbing Set # Repetitions (reps) 2 PT-Balance Assessment Sitting Balance and Reactions Static Sitting Balance Ability Good Dynamic Sitting Balance Ability Good Standing Balance and Reactions Static Standing Balance Ability Fair Dynamic Standing Balance Ability Fair Device Used FWW M5 PT-IP Objective Assessments Start: 10/08/20 12:05 Freq: NEEDED Status: Active Protocol: Document 10/08/20 10:05 AB (Rec: 10/08/20 12:48 AB [email or web address]) Orientation Orientation/Cognition Level of Alertness Alert Orientation Name,Place,Situation Language Function Ability Hard of Hearing Safety Awareness Decreased Safety Awareness Gross Range of Motion Lower Extremity ROM Assessment Left Impaired Impairments L knee flexion: ~ 60 deg Strength Lower Extremity Strength Assessment Left Impaired Hip 3+/5 Knee 3-/5 Muscle Tone Muscle Tone WNL Yes M6 PT-IP Treatment Start: 10/08/20 12:05 Freq: NEEDED Status: Active Protocol: Document 10/08/20 10:05 AB (Rec: 10/08/20 12:48 AB [email or web address]) Physical Therapy Treatment Exercises Exercises Heel Slides Education Education Provided Precautions,Weight Bearing Status,Post-Op Packet,Safety M7 PT-IP Assessment and Plan Start: 10/08/20 12:05 Freq: NEEDED Status: Active Protocol: Document 10/08/20 10:05 AB (Rec: 10/08/20 12:48 AB [id number]) PT Summary Assessment and Plan Potential Rehabilitation Potential Good Status of Condition at Evaluation Stable Summary Impairments Pain,ROM,Strength,Balance, Coordination,Cognition,Bed Mobility,Transfers,Gait, Activity Tolerance Assessment Summary pt requiring CGA to min A with mobility using FWW and presents with unsteady gait. caregiver training set up for 1pm this afternoon with spouse . will continue to assess progress for safe d/c plan. pt stated that he is set up for outpt PT. Goals Bed Mobility Goal Independent Transfer Goal Independent,Front Wheeled Walker Gait Goal Independent,Front Wheel Walker Gait Distance 150 Other Goals up/down 2 steps R rail ascending CGA Days to Meet Goals 5 Frequency of Treatment Frequency Of Treatment Twice a Day Treatment Plan Physical Therapy Treatment Plan Bed Mobility Training,Transfer Training,Gait Training, Therapeutic Exercise,Balance Retraining,Post Op Education, Discharge Planning,Hot or Cold Pack,Neuromuscular Re-ed, Coordination Retraining,Manual Therapy Precautions Other Precautions LLE WBAT Recommendations To Nursing Amount of Assist Needed 1 Person Assist Discharge Recommendations PT Discharge Recommendations Home with Assistance, Outpatient PT Transportation Needs at Discharge Private Vehicle
[2020-10-08 12:16] VITALS: BP 128/67; PULSE 57; RESP 18; TEMP 36.9; O2SAT 97
--- NOTE | 2020-10-08 12:57 | P.PN_ITS ---
Subjective Subjective Date Patient Seen: 10/08/20 Time Patient Seen: 12:57 Interval history: 70 year old male admitted to the hospital after L knee surgery. Complained of chest pain and had elevated potassium levels, medicine was consulted. Patient denies complaints today, no further chest pains, nausea, vomiting, abdominal pain. He feels well. Serial troponins were negative, patient follows with Dr. Dominguez as an outpatient and had stress testing 3 years ago. Exam Vital Signs (past 8 hours): - 10/08/20 05:16 10/08/20 07:03 10/08/20 07:38 Temperature 98.5 F 98.4 F Pulse Rate 64 60 58 L Respiratory Rate 16 16 18 Blood Pressure 120/60 162/79 H Pulse Oximetry 95 96 96 10/08/20 12:16 Temperature 98.4 F Pulse Rate 57 L Respiratory Rate 18 Blood Pressure 128/67 Pulse Oximetry 97 Oxygen Delivery Method Room Air Oxygen Flow Rate 0 Narrative Exam Narrative: GEN: no acute distress HEENT:MMM, PERRL NECK: trachea midline, no JVD CV: regular rate and rhythm with no murmurs PULM: clear bilaterally, no wheezes, rhonchi, rales ABD: soft, nontender, nondistended, no organomegaly EXT: warm and well perfused with no edema NUERO: awake and alert, moving all extremities Objective Labs Result Diagrams: 10/08/20 04:05 10/08/20 04:05 Labs: Laboratory Results - last 24 hr 10/07/20 10/07/20 10/07/20 16:15 16:15 21:00 Hgb Hct Sodium 136 L Potassium 6.0 H Chloride 105 Carbon Dioxide 25 BUN 29 H Creatinine 1.47 H Estimated GFR 47.4 L BUN/Creatinine Ratio 19.7 Glucose 138 H Calcium 8.7 Total Creatine Kinase 48 L 59 CK-MB (CK-2) TNP TNP CK-MB (CK-2) Rel Index TNP TNP Troponin I < 0.012 < 0.012 10/07/20 10/08/20 10/08/20 21:00 04:05 04:05 Hgb 12.1 L Hct 36.4 L Sodium 137 Potassium 5.2 H Chloride 104 Carbon Dioxide 24 BUN 29 H Creatinine 1.50 H Estimated GFR 46.3 L BUN/Creatinine Ratio 19.3 Glucose 208 H Calcium 9.3 Total Creatine Kinase CK-MB (CK-2) CK-MB (CK-2) Rel Index Troponin I < 0.012 10/08/20 04:05 Hgb Hct Sodium 135 L Potassium 5.2 H Chloride 103 Carbon Dioxide 25 BUN 31 H Creatinine 1.66 H Estimated GFR 41.2 L BUN/Creatinine Ratio 18.7 Glucose 140 H Calcium 8.6 Total Creatine Kinase CK-MB (CK-2) CK-MB (CK-2) Rel Index Troponin I [facility] Medical History Asthma Blood clot in vein (2001) COPD (chronic obstructive pulmonary disease) Degenerative disc disease, cervical Depression Fatty liver GERD (gastroesophageal reflux disease) Hearing impaired HTN (hypertension) Hx of coronary angiogram Musculoskeletal pain of left lower extremity Myocardial infarction (1994) Obesity (BMI 30-39.9) Obstructive sleep apnea of adult Pain of left upper extremity Prediabetes Primary insomnia Prostate cancer (~2003) Renal cell carcinoma (2002) Rosacea Vertigo (2001) Surgical History History of vasectomy Hx of arthroscopy of left knee Hx of bilateral cataract extraction (2017) Hx of eye surgery (1999) Hx of partial nephrectomy (06/2002) Hx of sinus surgery Hx of varicose vein stripping (1977) Social History marital status: details: maura Mcguire, lives in [place] household members: spouse lives independently: Yes caregiver/support person: No housing: house Smoking Status: Never smoker alcohol intake: current substance use type: does not use Assessment & Plan Assessment & Plan narrative: Mr. Zamarripa is a 70M with PMH CKD, CAD, VITALIY, HTN who underwent L TKA and afterwards developed chest pain and was found to have hyperkalemia, now improved. 1. Hyperkalemia, improved. -in postoperative setting hyperkalemia is most likely from hypovolemia, or intraoperative fluid shifts -patient at higher risk of developing this due to CKD -CK negative, no evidence of rhabdo, also no metabolic acidosis -elevated to 6.0 post oeratively, improved with medical therapies of insulin, dextrose, calcium gluconate, kayexelate and stable this AM. -no EKG changes noted -avoid lactated ringers, continue low potassium diet upon discharge. 2. CKD stage 3 -risk factor for developing hyperkalemia -attempt to keep euvolemic -avoid nsaids -current medications appear to not be nephrotoxic 3. Chest pain, improved. -patient at higher risk for having cardiac event -noted brief episode of chest discomfort after surgery -now completely resolved -etiologies are many, but may be medication effect or from fluid shifts, reflux, arrythmia however no events are noted. -initial ekg did not show ischemia -serial troponins negative. -follow up with cardiology as an outpatient for possible further evalauation, reported stress testing [address] Dominguez is his painter and body mechanic apprentice. Thank you for this consult, medicine will sign off at this time. No further medical evaluation necessary as an inpatient.
--- NOTE | 2020-10-08 13:05 | PT.IPTN ---
Current Diagnoses Unilateral primary osteoarthritis, left knee (10/08/20) Surgery Performed Operation Date: 10/07/20 13:15 Actual Procedures p Total Knee Arthroplasty(Left) - Darin Cantrell MD Physical Therapy Treatment Note M2 PT-IP Current Condition Start: 10/08/20 12:05 Freq: NEEDED Status: Discharge Protocol: Document 10/08/20 10:05 AB (Rec: 10/08/20 12:48 AB [email or web address]) Physical Therapy Current Condition Current Condition Evaluation Date 10/08/20 Treatment Diagnosis s/p L TKA; difficulty in walking Onset Date 10/07/20 Weight Bearing Status Weight Bearing Status Weight Bear as Tolerated Allowed Weight Bearing Amount (enter % LLE WBAT or #) (%) M3 PT-IP Subjective Start: 10/08/20 12:05 Freq: NEEDED Status: Discharge Protocol: Document 10/08/20 13:05 AB (Rec: 10/08/20 17:03 AB [email or web address]) Subjective Physical Therapy Visit Type Type Treatment Note Visit Start Time 13:05 Visit Stop Time 14:00 Total Visit Minutes [address] RECORDER Visits 0 Physical Therapy Visit Comments Patient Comments pt is agreeable to do PT Therapy Pain Assessment Pain When Pain Assessed At Rest Pain Present Pain Present Pain Reported Location left knee Scale Used pain scale not stated Pain Management Techniques Apply Cold,Modification of Treatment,Re-positioning, Timing of Activity with Medications M4 PT-IP Mobility and Gait Start: 10/08/20 12:05 Freq: NEEDED Status: Discharge Protocol: Document 10/08/20 13:05 AB (Rec: 10/08/20 17:03 AB [email or web address]) PT-Bed Mobility Assessment Supine to Sit Supine to Sit Standby Assistance Sit to Supine Sit to Supine Standby Assistance PT-Transfer Assessment Sit to and From Stand Sit to and from Stand Contact Guard Assistance,1 Person Assistance,Use of Upper Extremities Equipment Transfer Assistive Device Gait Belt,Front Wheeled Walker Orthotic/Prosthetic Devices or Brace: No Comments Mobility Comments caregiver training conducted. spouse in room with pt. pt completed supine to sit SBA. educated spouse on how to use safety belt and how to assist pt. spouse assisted pt with ambulation in room using FWW. pt ambulated to the bed and completed bed mobility with spouse assisting. pt ambulated out in the hallway with spouse assisting ~75 ft. stair climbing training conducted. educated spouse on how to assist pt. pt completed up/down steps holding on to R rail with B hands min A and spouse was able to assist safely. pt assisted back to his room. ambulated to the bed using FWW CGA. completed sit to supine SBA. positioned in bed . call light and table placed within reach. pt stated taht he is tired. educated pt and spouse regarding car transfers. pt and spouse has no further concerns. Gait Assessment Gait Gait Assistance Required: Contact Guard Assist Distance (Feet) 75 Able to Maintain Weight Bearing Status Yes During Gait Assistive Devices Assistive Device Gait Belt,Front Wheeled Walker Orthotic/Prosthetic Devices or Brace: No Gait Deviations General Gait Pattern Decreased Stride Length, Decreased Feet Clearance,Step- to Gait Factors Limiting Gait Function Factors Limiting Gait Function Decreased Activity Tolerance, Decreased Strength,Difficulty Following Directions,Limited Range of Motion,Pain,Poor Balance,Poor Safety Awareness Stair Climbing Assessment Evaluation Level of Assist On Stairs Minimal Assistance,1 Person Assistance Devices Stair Climbing Assistive Devices Front Wheel Walker Technique/Endurance Stair Climbing Direction Ascend and Descend Stair Climbing Technique Step to Step Number of Steps Climbed 3 Stair Climbing Set # Repetitions (reps) 2 M5 PT-IP Objective Assessments Start: 10/08/20 12:05 Freq: NEEDED Status: Discharge Protocol: Document 10/08/20 10:05 AB (Rec: 10/08/20 12:48 AB [email or web address]) Orientation Orientation/Cognition Level of Alertness Alert Orientation Name,Place,Situation Language Function Ability Hard of Hearing Safety Awareness Decreased Safety Awareness Gross Range of Motion Lower Extremity ROM Assessment Left Impaired Impairments L knee flexion: ~ 60 deg Strength Lower Extremity Strength Assessment Left Impaired Hip 3+/5 Knee 3-/5 Muscle Tone Muscle Tone WNL Yes M6 PT-IP Treatment Start: 10/08/20 12:05 Freq: NEEDED Status: Discharge Protocol: Document 10/08/20 13:05 AB (Rec: 10/08/20 17:03 AB [email or web address]) Physical Therapy Treatment Education Education Provided Precautions,Weight Bearing Status,Post-Op Packet,Safety M7 PT-IP Assessment and Plan Start: 10/08/20 12:05 Freq: NEEDED Status: Discharge Protocol: Document 10/08/20 13:05 AB (Rec: 10/08/20 17:03 AB [email or web address]) PT Summary Assessment and Plan Potential Rehabilitation Potential Good Summary Impairments Pain,ROM,Strength,Balance, Coordination,Sensation,Tone, Cognition,Bed Mobility, Transfers,Gait,Activity Tolerance Progress Towards Goals Slow Progress due to Pain,Slow Progress due to Activity Tolerance Assessment Summary caregiver training conducted and spouse was able to assist pt safely. pt plans to go home with spouse to assist and has outpt PT scheduled. pt may go home when medically stable. Goals Bed Mobility Goal Independent Transfer Goal Independent,Front Wheeled Walker Gait Goal Independent,Front Wheel Walker Gait Distance 150 Other Goals up/down 2 steps R rail ascending CGA Days to Meet Goals 5 Frequency of Treatment Frequency Of Treatment Twice a Day Treatment Plan Physical Therapy Treatment Plan Bed Mobility Training,Transfer Training,Gait Training, Therapeutic Exercise,Balance Retraining,Post Op Education, Discharge Planning,Hot or Cold Pack,Neuromuscular Re-ed, Coordination Retraining,Manual Therapy Precautions Other Precautions LLE WBAT Recommendations To Nursing Amount of Assist Needed 1 Person Assist Discharge Recommendations PT Discharge Recommendations Home with Assistance, Outpatient PT Transportation Needs at Discharge Private Vehicle
--- NOTE | 2020-10-08 13:41 | P.DS_ITS ---
History of Present Illness History of Present Illness Date Patient Seen: 10/08/20 Time Patient Seen: 13:41 Chief complaint: OPB Narrative: Refer to previous HPI. Discharge Providers Provider Date of admission: 10/08/20 13:05 Discharge Date: 10/08/20 Primary care physician: Logan Casper MD Consults: 10/07/20 07:36 Consult to Anesthesiology Routine Comment: Consulting Provider: Anesthesiologist Reason for consultation: Regional block for post operative pain control 10/07/20 17:37 Consult to Discharge Planning Routine Comment: Consult to Physical Therapy Evaluate & Treat Comment: Physician Instructions: postop TKA protocol Consult to Respiratory Therapy Evaluate & Treat Comment: Physician Instructions: Evaluate and treat 10/08/20 00:02 Consult to Hospitalist Service Routine Comment: Consulting Provider: Christos Segura Reason for consultation: chest pain Has provider been notified: Yes Discharge provider: Sundar Munoz PA-C Summary Hospital Course Discharge Diagnosis: Left knee osteoarthritis Status post left total knee arthroplasty Hospital Course: Patient was admitted to the hospital following the above-listed procedure for the above-listed diagnosis. Following the procedure the patient the convalescing appropriately in his pain is managed with current pain management regimen. Throughout his time in the hospital the patient has denied fever, chills, nausea, chest pain, shortness of breath, or urinary retention. Patient has been taking aspirin 81 mg twice daily along with the assistance of sequential compression devices for DVT prophylaxis. Patient has been ambulating with the assistance of a front wheeled walker with physical therapy. Standard total knee replacement protocol. Status at Discharge Cognitive/behavioral status at discharge: oriented Functional status at discharge: uses cane/walker Overall status at discharge: patient is progressing back to baseline Exam Vital Signs (past 8 hours): - 10/08/20 07:03 10/08/20 07:38 10/08/20 12:16 Temperature 98.4 F 98.4 F Pulse Rate 60 58 L 57 L Respiratory Rate 16 18 18 Blood Pressure 162/79 H 128/67 Pulse Oximetry 96 96 97 Oxygen Delivery Method Room Air Oxygen Flow Rate 0 Narrative Exam Narrative: 70-year-old male resting comfortably in bedside chair in no apparent distress. Jody dressing is on and functioning. Dressing is Clean, d ry, intact.. Motor functions intact bilateral lower extremities. Sensation grossly intact to light touch bilateral lower extremities. Objective Labs Result Diagrams: 10/08/20 04:05 10/08/20 04:05 Labs: Laboratory Results - last 24 hr 10/07/20 10/07/20 10/07/20 16:15 16:15 21:00 Hgb Hct Sodium 136 L Potassium 6.0 H Chloride 105 Carbon Dioxide 25 BUN 29 H Creatinine 1.47 H Estimated GFR 47.4 L BUN/Creatinine Ratio 19.7 Glucose 138 H Calcium 8.7 Total Creatine Kinase 48 L 59 CK-MB (CK-2) TNP TNP CK-MB (CK-2) Rel Index TNP TNP Troponin I < 0.012 < 0.012 10/07/20 10/08/20 10/08/20 21:00 04:05 04:05 Hgb 12.1 L Hct 36.4 L Sodium 137 Potassium 5.2 H Chloride 104 Carbon Dioxide 24 BUN 29 H Creatinine 1.50 H Estimated GFR 46.3 L BUN/Creatinine Ratio 19.3 Glucose 208 H Calcium 9.3 Total Creatine Kinase CK-MB (CK-2) CK-MB (CK-2) Rel Index Troponin I < 0.012 10/08/20 04:05 Hgb Hct Sodium 135 L Potassium 5.2 H Chloride 103 Carbon Dioxide 25 BUN 31 H Creatinine 1.66 H Estimated GFR 41.2 L BUN/Creatinine Ratio 18.7 Glucose 140 H Calcium 8.6 Total Creatine Kinase CK-MB (CK-2) CK-MB (CK-2) Rel Index Troponin I [facility] Medical History Asthma Blood clot in vein (2001) COPD (chronic obstructive pulmonary disease) Degenerative disc disease, cervical Depression Fatty liver GERD (gastroesophageal reflux disease) Hearing impaired HTN (hypertension) Hx of coronary angiogram Musculoskeletal pain of left lower extremity Myocardial infarction (1994) Obesity (BMI 30-39.9) Obstructive sleep apnea of adult Pain of left upper extremity Prediabetes Primary insomnia Prostate cancer (~2003) Renal cell carcinoma (2002) Rosacea Vertigo (2001) Surgical History History of vasectomy Hx of arthroscopy of left knee Hx of bilateral cataract extraction (2017) Hx of eye surgery (1999) Hx of partial nephrectomy (06/2002) Hx of sinus surgery Hx of varicose vein stripping (1977) Social History marital status: details: maura Mcguire, lives in [place] household members: spouse lives independently: Yes caregiver/support person: No housing: house Smoking Status: Never smoker alcohol intake: current substance use type: does not use Discharge Assessment & Plan Assessment and Plan Assessment: Patient is doing well. Plan of Treatment: Patient is to continue outpatient physical therapy following discharge from the hospital. First postoperative visit is scheduled in clinic 2 weeks following discharge from the hospital. Current pain management regimen is to be continued as it is adequately controlled patient's pain level at this time. Jody dressing over the incision site should remain clean dry and intact for 1 week. Contact the clinic if the dressing is to become damaged or soiled. Aspirin 81 mg twice daily is to be continued for 6 weeks for DVT prophylaxis. Patient is to contact clinic with any concerns or questions. Any signs of increased redness, swelling, warmth, pain, or discharge from around the incision site should be reported to the clinic. Discharge Plan Discharge Plan Patient Disposition: Home Provider Discharge Comment: Patient cleared for discharge per hospitalist. Discharge orders & Medications Prescriptions: New acetaminophen 325 mg Tablet 650 mg PO TID Qty: 60 RF: 0 aspirin 81 mg Tablet,Delayed Release (Dr/Ec) 81 mg PO BID Qty: 60 RF: 0 tamsulosin [Flomax] 0.4 mg Capsule 0.4 mg PO DAILY Qty: 5 RF: 0 oxycodone 5 mg Tablet 5 mg PO Q3HR PRN (Reason: Pain, Moderate (4-6)) Qty: 40 RF: 0 polyethylene glycol 3350 17 gram Powder In Packet 17 gm PO DAILY PRN (Reason: Constipation) Qty: 20 RF: 0 Continued gabapentin 800 mg tablet 400 mg PO TID RF: 0 lovastatin 20 mg tablet 20 mg PO DAILY Qty: 90 RF: 3 carbamazepine 100 mg tablet extended release 12 hr 100 mg PO BID Qty: 180 RF: 3 furosemide 40 mg tablet 40 mg PO DAILY RF: 0 tamsulosin [Flomax] 0.4 mg capsule 0.4 mg PO DAILY RF: 0 Flonase Sensimist 27.5 mcg/actuation spray,suspension 2 spray intranasal DAILY RF: 0 albuterol sulfate 90 mcg/actuation HFA aerosol inhaler 2 puff inhalation Q4-6H PRN (Reason: Shortness Of Breath) RF: 0 nitroglycerin 0.4 mg tablet, sublingual 0.4 mg sublingual Q5M PRN (Reason: Chest Pain) RF: 0 clonidine HCl 0.2 mg tablet 0.2 mg PO BID RF: 0 fluticasone propion-salmeterol [Advair Diskus] 250-50 mcg/dose blister with device 1 inh inhalation BID RF: 0 omeprazole 20 mg capsule,delayed release(DR/EC) 20 mg PO DAILY RF: 0 (DME) Resmed Airsense 10 CPAP Qty: 1 RF: 0 Discontinued aspirin 81 mg tablet,delayed release (DR/EC) 81 mg PO DAILY RF: 0 Follow up/Referrals: Logan Casper MD [Primary Care Provider] - Darin Cantrell MD [Physician] - (2 weeks) Diet/Activity/Treatments Diet: Diet as Tolerated Activity: Weightbearing as tolerated Cold/Heat Therapy: Apply ice to knee as needed Skin/Wound/Dressing Care Report to your healthcare provider any signs of infection, such as:: chills, fever, increased pain, unusual drainage and unusual redness Dressing: Keep dressing clean and dry. May shower. Jody dressing instructions provided. Visit Report/Discharge Packet Instructions: DI for Knee Replacement, How to Prevent Falls, DI for Prescription Opioid Use Stand Alone Forms: Surgery Discharge Discharge Data Primary Care Provider: Logan Casper
[2020-10-08 15:45] VITALS: BP 141/75; PULSE 62; RESP 17; TEMP 37.2
--- NOTE | 2020-10-08 16:57 | PC.NURSE ---
Pt dressed. IV and tele removed. Pt escorted off unit via w/c to private vehicle with all personal belongings. Pt left in stable condition.
== END 2020-10-08 16:50 | disposition home or self-care (01) | DRG 470 ==
LOC: OR 13:17 → AC 13:17
PROVIDERS: Anesthesiology; Internal Medicine; Admitting Provider Orthopaedic Surgery Adult Reconstructive Orthopaedic Surgery; PCP Student in an Organized Health Care Education/Training Program; Referring Provider Orthopaedic Surgery Adult Reconstructive Orthopaedic Surgery; Visit Provider Orthopaedic Surgery Adult Reconstructive Orthopaedic Surgery
PROC: 0SRD0JZ Replacement of Left Knee Joint with Synthetic Substitute, Open Approach (ICD-10-PCS; CPT 27447; principal; 2020-10-07 13:15)
DX: M17.12 Unilateral primary osteoarthritis, left knee (principal); J44.9 Chronic obstructive pulmonary disease, unspecified; I12.9 Hypertensive chronic kidney disease with stage 1 through stage 4 chronic kidney disease, or unspecified chronic kidney disease; N18.30 Chronic kidney disease, stage 3 unspecified; E87.5 Hyperkalemia; G47.33 Obstructive sleep apnea (adult) (pediatric); I25.10 Atherosclerotic heart disease of native coronary artery without angina pectoris; E66.9 Obesity, unspecified; Z68.34 Body mass index [BMI] 34.0-34.9, adult; R07.9 Chest pain, unspecified; E86.1 Hypovolemia; Z20.822 Contact with and (suspected) exposure to COVID-19
CPT/HCPCS: 36415; 73560; 80048; 82550; 82962; 84484; 85014; 85018; 87635; 93005; 94640; 97116; 97161; 97530; C1776; C9803; J0610; J0690; J1100; J1200; J2250; J2270; J2274; J2405; J2704; J3010

== ENCOUNTER 2020-11-04 11:29 | Day surgery (SDC) | payer MEDICARE, OTHER, SELFPAY ==
[2020-10-07 17:44] VITALS: BMI 34.8
[2020-11-04] VITALS (11 sets, daily range): BP systolic 128–151; BP diastolic 53–76; PULSE 67–95; RESP 12–16; TEMP 36.4–36.5; O2SAT 96–99; BMI 34.4
[2020-11-04 11:57] LABS: COVID19 -Nasal RAPID Negative (Negative)
[2020-11-04] MEDS: LACTATED RINGERS 1,000 ML 42 ML IV (12:50)
--- NOTE | 2020-11-04 13:12 | PM.PREOP ---
Pre-operative Note COVID-19 COVID-19 status: Negative Result date/Date tested (Pos, Neg/Pending): 11/04/20 Interval Note History & Physical reviewed/Exam performed by Physician: Yes Changes to H&P: No H&P completed within 30 days and has changed as indicated here:: Plan for left knee GINO
--- NOTE | 2020-11-04 13:12 | SUR.OPER ---
supine on stretcher with pillow. operative leg under control of surgeon.
--- NOTE | 2020-11-04 13:33 | P.OP_ITS ---
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 At his postop visit he has been slow to prog ress with range of motion he has worked with physical therapy however his most recent physical therapy is only about 75? of flexion. Surgeon: Darin Cantrell Click Yes if Unassisted: Yes Anesthesia Type: General Operative Notes Findings: Stiff knee pre manipulation. Range of motion under anesthesia is 3? short of full extension to approximately 75? of flexion Estimated Blood Loss (mL): 0 Procedure in detail: Patient was met in the preoperative holding area and the site and side of surgery marked by . Informed consent had been reviewed in the clinic was also reviewed signed in the preoperative holding area. Patient was then brought back to the operating room where he was induced under general anesthesia. A surgical time-out was performed verifying the site and side of surgery as well as the name of the patient. Pre manipulation range of motion measurement was 3? short of full extension to 75? of flexion. Gentle manipulation the knee consisting of balancing the tibia against gravity resulted in giving way of scar tissue within the knee and 3 distinct releases. Range of motion improved to 3? short of full extension to approximately 120? of flexion. Patient was taken to PACU. Complications: none Post-operative Condition: stable Disposition: PACU Plan for aftercare: DC home when stable from PACU. Immediate resumption of PT. PT appointment scheduled for tomorrow am.
--- NOTE | 2020-11-04 13:45 | DI.RAD.S_ITS ---
PROCEDURE: XR KNEE LT 1TO2V INDICATIONS: POST KNEE MANIPULATION UNDER ANESTHESIA TECHNIQUE: 3 views of the knee were acquired. COMPARISON: [facility], [place], XR KNEE LT 1TO2V, 10/07/2020, 15:38. FINDINGS: Bones: No change in appearance or alignment of left knee arthroplasty. No periprosthetic fractures or evidence of loosening/infection. Soft tissues: Moderate joint effusion. No suspicious soft tissue calcifications. Anterior soft tissue swelling. IMPRESSION: No change in appearance or alignment of left knee arthroplasty. Dictated by: Basim Segundo [facility] Interpreted: Aristides Julio MD on 11/04/2020 at 14:01 Transcribed by: SHAHZAD on 11/04/2020 at 14:02 Approved by: Aristides Julio M.D. on 11/04/2020 at 15:06
--- NOTE | 2020-11-04 14:26 | SUR.PHASEI ---
Called and spoke to Dr Audra MARROQUIN collections director. Informed of patient with pain 3-4 /10 to left knee after manipulation, no narcotics received in OR and no oral meds ordered for PACU. See new order.
[2020-11-04] MEDS: ACETAMINOPHEN 325 MG TABLET 975 MG PO (14:37)
[2020-11-04] MEDS: OXYCODONE IR 5 MG TABLET PO (14:38)
== END 2020-11-04 15:00 | disposition home or self-care (01) ==
PROVIDERS: PCP Student in an Organized Health Care Education/Training Program; Referring Provider Orthopaedic Surgery Adult Reconstructive Orthopaedic Surgery; Visit Provider Orthopaedic Surgery Adult Reconstructive Orthopaedic Surgery
PROC: (CPT 27570; principal; 2020-11-04 13:15)
DX: T84.82XA Fibrosis due to internal orthopedic prosthetic devices, implants and grafts, initial encounter (principal); M25.662 Stiffness of left knee, not elsewhere classified; Z96.652 Presence of left artificial knee joint; I10 Essential (primary) hypertension; J44.9 Chronic obstructive pulmonary disease, unspecified; G47.33 Obstructive sleep apnea (adult) (pediatric); K21.9 Gastro-esophageal reflux disease without esophagitis
CPT/HCPCS: 27570; 73560; 87635; J0330; J2704

== ENCOUNTER → 2021-04-06 17:09 | Outpatient (CLI) | payer MEDICARE, OTHER, SELFPAY ==
[2021-02-01 10:27] VITALS: BMI 34.8
--- NOTE | 2021-04-06 17:14 | DI.RAD.S_ITS ---
PROCEDURE: XR KNEE LT 3V INDICATIONS: Re-assess knee hardware; ongoing pain and swelling TECHNIQUE: 3 views of the knee were acquired. COMPARISON: [facility], [place], XR KNEE LT 1TO2V, 11/04/2020, 13:46. FINDINGS: Bones: Expected post operative alignment of left total knee arthroplasty. Hardware appears intact. No evidence of loosening. No fracture. Soft tissues: Small joint effusion. Anterior soft tissue swelling. IMPRESSION: Small joint effusion and anterior soft tissue swelling. Expected post operative alignment of total knee arthroplasty. Dictated by: Aristides Julio M.D. on 04/07/2021 at 8:31 Approved by: Aristides Julio M.D. on 04/07/2021 at 8:32
== END ==
PROVIDERS: PCP Student in an Organized Health Care Education/Training Program; Referring Provider Student in an Organized Health Care Education/Training Program; Visit Provider Student in an Organized Health Care Education/Training Program
DX: T84.84XA Pain due to internal orthopedic prosthetic devices, implants and grafts, initial encounter (principal); Z09 Encounter for follow-up examination after completed treatment for conditions other than malignant neoplasm; M25.562 Pain in left knee; M25.462 Effusion, left knee; M79.89 Other specified soft tissue disorders; Z96.652 Presence of left artificial knee joint
CPT/HCPCS: 73562

== ENCOUNTER 2021-10-02 13:43 | Emergency (ER) | payer MEDICARE, OTHER, SELFPAY ==
[2021-02-01 10:27] VITALS: BMI 34.8
[2021-10-02 13:57] VITALS: BP 152/77; PULSE 80; RESP 16; TEMP 35.7; O2SAT 97; BMI 34.4
--- NOTE | 2021-10-02 14:17 | DI.RAD.S_ITS ---
PROCEDURE: XR HAND RT 2V INDICATIONS: In soft tissue swelling TECHNIQUE: 3 views of the hand(s) acquired. COMPARISON: None. FINDINGS: Bones: No fractures or dislocations. Carpal bones are normally aligned. No suspicious bony lesions. Triscaphe and 1st carpometacarpal joint space narrowing with subchondral sclerosis Soft tissues: No suspicious soft tissue calcifications. Diffuse soft tissue swelling noted without soft tissue gas present. IMPRESSION: Diffuse soft tissue swelling without soft tissue gas present. Intercarpal osteoarthritis Approved by: Shad Moffett M.D. on 10/02/2021 at 14:38
--- NOTE | 2021-10-02 14:32 | ED.SKABFB ---
HPI - Skin/Abscess/Foreign Bdy <Marta Cano, [facility] - Last Filed: 10/02/21 15:00> General Chief complaint: Skin/Abscess/Foreign Body Stated complaint: Cellulitis not getting better with meds Time Seen by Provider: 10/02/21 14:11 Mode of arrival: Ambulatory History of Present Illness HPI narrative: 71-year-old male with history of COPD, CKD, prostate cancer, [place], reported diabetes but not on metformin or insulin, who presents to the emergency department complaining of right hand swelling, warmth, infection which he has been on antibiotics for for the last three days. Patient states he has multiple allergies, he saw his primary care provider who is Dr. Casper on 09/30/21 and was prescribed azithromycin x5 days for cellulitis versus tendon inflammation. Patient states that since the , he has had increased swelling and erythema to his right, it is primarily on the dorsum, he states he has very limited mobility with flexion and extension, he is unable to make a fist due to the swelling in his fingers as well. He states that the swelling starts right at his wrist line, he denies any arm, elbow, or shoulder pain. He states that this is very tender to touch, he denies any systemic symptoms of illness including fever, fatigue weakness dizziness, chills, nausea vomiting. He states that he has had Rocephin in the past and this has worked well for him, he states sulfa is his worst antibiotic allergy, has had a fine rash with penicillin in the past but no anaphylaxis. Related Data Home Medications Medication Instructions Recorded Confirmed Resmed Airsense 10 CPAP #1 ea 09/13/18 09/30/21 albuterol sulfate 90 mcg/actuation 2 puff INHALATION Q4-6H PRN 07/01/20 09/30/21 aerosol inhaler tamsulosin 0.4 mg capsule (Flomax) 0.4 mg PO DAILY 07/01/20 09/30/21 Previous Rx's Medication Instructions Recorded acetaminophen 325 mg tablet 650 mg PO TID #60 tab 10/08/20 aspirin 81 mg tablet,delayed 81 mg PO BID #60 tab 10/08/20 release nitroglycerin 0.4 mg sublingual 0.4 mg SUBLINGUAL Q5M PRN #20 tab 10/15/20 tablet MDD 3 tab sildenafil (pulm.hypertension) 20 20 - 100 mg PO DAILY PRN #30 tab 12/07/20 mg tablet omeprazole 20 mg capsule,delayed 20 mg PO DAILY #90 cap 03/11/21 release montelukast 10 mg tablet 10 mg PO DAILY #90 tab 03/25/21 gabapentin 800 mg tablet 400 mg PO TID #140 tab 04/19/21 fluticasone propionate 50 1 spray INTRANASAL BID #16 g 06/09/21 mcg/actuation nasal spray,suspension (Flonase Allergy Relief) carbamazepine 100 mg 100 mg PO BID #180 tab 07/20/21 tablet,extended release,12 hr nystatin 100,000 unit/gram topical 1 applic TOPICAL BID #30 g 07/20/21 cream lovastatin 20 mg tablet 20 mg PO DAILY #90 tab 07/23/21 triamcinolone acetonide 0.5 % 1 applic TOPICAL DAILY #15 g 08/06/21 topical cream fluticasone 250 mcg-salmeterol 50 1 inh INHALATION BID #180 ea 08/19/21 mcg/dose blistr powdr for inhalation (Advair Diskus) clonidine HCl 0.2 mg tablet 0.2 mg PO BID #180 tab 08/23/21 furosemide 40 mg tablet 40 mg PO DAILY #90 tab 08/27/21 azithromycin 250 mg tablet See Rx Instructions PO .COMPLEX 5 09/30/21 Days #6 tab cefdinir 300 mg capsule 300 mg PO Q12H #14 cap 10/02/21 prednisone 20 mg tablet 40 mg PO DAILY #10 tab 10/02/21 Allergies Allergy/AdvReac Type Severity Reaction Status Date / Time adhesive tape Allergy Severe Eats my Verified 10/02/21 14:09 skin epinephrine Allergy Severe chest pain Verified 10/02/21 14:09 hydrocodone [From Vicodin] Allergy Severe rash Verified 10/02/21 14:09 severe itching Iodinated Contrast Media Allergy Severe hives, Verified 10/02/21 14:09 trouble breathing tramadol Allergy Severe severe Verified 10/02/21 14:09 vertigo attack iodine Allergy Intermediate Rash Verified 10/02/21 14:09 lisinopril Allergy Intermediate affected Verified 10/02/21 14:09 kidney function amlodipine [From Norvasc] Allergy Mild Rash, Verified 10/02/21 14:09 itching clarithromycin [From Biaxin] Allergy Mild rash Verified 10/02/21 14:09 minocycline Allergy Mild rash Verified 10/02/21 14:09 moxifloxacin [From Avelox] Allergy Mild rash Verified 10/02/21 14:09 Penicillins Allergy Mild rash Verified 10/02/21 14:09 propoxycaine Allergy Mild rash Verified 10/02/21 14:09 Sulfa (Sulfonamide Allergy Mild rash Verified 10/02/21 14:09 Antibiotics) atorvastatin AdvReac Intermediate Dizziness Verified 10/02/21 14:09 pregabalin [From Lyrica] AdvReac Vertigo Verified 10/02/21 14:09 perfumes Allergy Intermediate SOB, Uncoded 10/02/21 14:09 throat closing Review of Systems <ARIE Yoder - Last Filed: 10/02/21 15:00> Review of Systems Narrative: General: denies fever, chills Head/Neck: denies headache, neck pain Eyes: denies visual changes, eye pain Cardio: denies chest pain, palpitations Respiratory: denies shortness of breath, cough GI: denies abdominal pain, nausea, vomiting, or diarrhea : denies dysuria, hematuria or flank pain MSK: denies new joint pain, muscle weakness or swelling Skin: Endorses right hand swelling and erythema, no open wound or drainage Neuro: Endorses right hand numbness and tingling Patient History <ARIE Yoder - Last Filed: 10/02/21 15:00> Medical History Asthma Blood clot in vein (2001) COPD (chronic obstructive pulmonary disease) Degenerative disc disease, cervical Depression Fatty liver GERD (gastroesophageal reflux disease) Hearing impaired History of angina History of arthritis History of atrial fibrillation History of radiation therapy History of shingles HTN (hypertension) Hx of coronary angiogram Hx of fall Lower urinary tract symptoms Microscopic hematuria Musculoskeletal pain of left lower extremity Myocardial infarction (1994) Obesity (BMI 30-39.9) Obstructive sleep apnea of adult Pain of left upper extremity Prediabetes Primary insomnia Prostate cancer (~2003) Renal cell carcinoma (2002) Rosacea Vertigo (2001) Surgical History History of vasectomy Hx of arthroscopy of left knee Hx of bilateral cataract extraction (2017) Hx of cataract surgery Hx of eye surgery (1999) Hx of partial nephrectomy (06/2002) Hx of sinus surgery Hx of varicose vein stripping (1977) Family History Mother Hypertension Renal failure Social History marital status: details: maura Mcguire, lives in [place] number of children: 2 household members: spouse lives independently: Yes caregiver/support person: No housing: house Smoking Status: Never smoker alcohol intake: current substance use type: does not use Type(s) of exercise: walking frequency: 1-2 times per week Smoking Status: Never smoker alcohol intake frequency: holidays/special occasions only Substance Use Type: does not use Exam <ARIE Yoder - Last Filed: 10/02/21 15:00> Narrative Exam Narrative: Independently reviewed vitals signs and nursing notes. General: Awake, alert, nontoxic, no cardiorespiratory distress Head/Neck: Atraumatic, neck supple Eyes: EOMI, conjunctiva normal Nose: nares patent, no rhinorrhea Mouth/Throat: moist mucus membranes, posterior pharynx without erythema or lesion Cardio: Regular rate and rhythm, no peripheral edema Respiratory: respirations unlabored without wheezing, stridor, or rales. No retractions, hypoxia or tachypnea GI: Abdomen soft, nontender to palpation x4 quadrants, no guarding or rebound tenderness MSK: Moves all extremities right hand and wrist with significant limitation of flexion and extension, extension is more difficult than wrist flexion, patient able to flex fingers into a fist but with moderate weakness and limitation due to edema, tenderness to the dorsum of his right hand with erythema, edema, tenderness to the wrist. Patient endorses numbness and tingling in his fingers Skin: Dorsum of right hand with significant erythema, edema, fingers are edematous and taut, delayed cap refill Neuro: Normal speech and cognition, normal gait Initial Vital Signs Initial Vital Signs: Vital Signs Temperature 96.2 F L 10/02/21 13:57 Pulse Rate 80 10/02/21 13:57 Respiratory Rate 16 10/02/21 13:57 Blood Pressure 152/77 H 10/02/21 13:57 Pulse Oximetry 97 10/02/21 13:57 <Missy Franco DO - Last Filed: 10/03/21 07:12> Initial Vital Signs Initial Vital Signs: Vital Signs Temperature 96.2 F L 10/02/21 13:57 Pulse Rate 80 10/02/21 13:57 Respiratory Rate 16 10/02/21 13:57 Blood Pressure 152/77 H 10/02/21 13:57 Pulse Oximetry 97 10/02/21 13:57 Course <ARIE Yoder - Last Filed: 10/02/21 15:00> Orders Ordered: Discontinued Medications Acetaminophen (Acetaminophen 325 Mg Tablet) 975 mg PO NOW ONE Stop: 10/02/21 14:22 Last Admin: 10/02/21 14:40 Dose: 975 mg Documented by: DEE Ceftriaxone Sodium 1,000 mg/ (Sodium Chloride) 100 mls @ 200 mls/hr IV NOW ONE Stop: 10/02/21 14:20 Last Infusion: 10/02/21 15:21 Dose: 0 mls/hr Documented by: Admin: 10/02/21 14:38 Dose: 200 mls/hr Documented by: DEE Ibuprofen (Ibuprofen 400 Mg Tablet) 600 mg PO NOW ONE Stop: 10/02/21 14:22 Last Admin: 10/02/21 14:40 Dose: Not Given Documented by: DEE Methylprednisolone (Methylprednisolone 125 Mg/2 Ml Vial) 125 mg IV NOW ONE Stop: 10/02/21 15:10 Last Admin: 10/02/21 15:26 Dose: 125 mg Documented by: DEE Vital Signs Vital signs: Vital Signs - 8 hr 10/02/21 13:57 Temperature 96.2 F L Pulse Rate 80 Respiratory Rate 16 Blood Pressure 152/77 H Pulse Oximetry 97 <Missy Franoc DO - Last Filed: 10/03/21 07:12> Orders Ordered: Discontinued Medications Acetaminophen (Acetaminophen 325 Mg Tablet) 975 mg PO NOW ONE Stop: 10/02/21 14:22 Last Admin: 10/02/21 14:40 Dose: 975 mg Documented by: DEE Ceftriaxone Sodium 1,000 mg/ (Sodium Chloride) 100 mls @ 200 mls/hr IV NOW ONE Stop: 10/02/21 14:20 Last Infusion: 10/02/21 15:21 Dose: 0 mls/hr Documented by: Admin: 10/02/21 14:38 Dose: 200 mls/hr Documented by: DEE Ibuprofen (Ibuprofen 400 Mg Tablet) 600 mg PO NOW ONE Stop: 10/02/21 14:22 Last Admin: 10/02/21 14:40 Dose: Not Given Documented by: DEE Methylprednisolone (Methylprednisolone 125 Mg/2 Ml Vial) 125 mg IV NOW ONE Stop: 10/02/21 15:10 Last Admin: 10/02/21 15:26 Dose: 125 mg Documented by: DEE Vital Signs Vital signs: Vital Signs - 8 hr 10/02/21 13:57 Temperature 96.2 F L Pulse Rate 80 Respiratory Rate 16 Blood Pressure 152/77 H Pulse Oximetry 97 MDM - Skin/Abscess/Foreign Bdy <ARIE Yoder - Last Filed: 10/02/21 15:00> Lab Data Result diagrams: 10/02/21 14:30 10/02/21 14:30 Labs: Lab Results 10/02/21 10/02/21 10/02/21 Range/Units 14:30 14:30 14:30 WBC 8.3 (4.5-11.0) X10^3/uL RBC 4.50 (4.5-5.9) X10^6/uL Hgb 13.8 (13.5-17.5) g/dL Hct 39.1 L (41-53) % MCV 87.0 (80-100) fL MCH 30.7 (26-34) PG MCHC 35.2 (30-36) % RDW 12.5 (11.6-14.8) % Plt Count 292 (150-400) X10^3/uL Neut % (Auto) 67.4 (50-75) % Lymph % (Auto) 22.6 L (25-40) % [place] % (Auto) 6.9 (3-14) % Eos % (Auto) 2.6 (2-4) % Baso % (Auto) 0.5 (0-2) % Neut # (Auto) 5600 (9597-8557) /uL Lymph # (Auto) 1900 (2287-5941) /uL [place] # (Auto) 600 (0-900) /uL Eos # (Auto) 200 (0-450) /uL Baso # (Auto) 0 (0-100) /uL Sodium 136 L (137-145) mmol/L Potassium 4.4 (3.4-5.1) mmol/L Chloride 99 (98-107) mmol/L Carbon Dioxide 29 (22-32) mmol/L BUN 38 H (9-20) mg/dL Creatinine 1.75 H (0.66-1.25) mg/dL Estimated GFR 41 L (>60) mL/min BUN/Creatinine Ratio 21.7 (6-22) Glucose 157 H (80-110) mg/dL Lactate 1.5 (0.7-2.1) mmol/L Calcium 9.5 (8.4-10.2) mg/dL Total Bilirubin 0.5 (0.2-1.3) mg/dL AST 23 (17-59) IU/L ALT 15 (<50) IU/L Alkaline Phosphatase 97 (38-126) U/L C-Reactive Protein 2.8 H (<1.0) mg/dL Total Protein 8.1 (6.3-8.2) g/dL Albumin 4.7 (3.5-5.0) g/dL Globulin 3.4 (1.7-4.1) g/dL Albumin/Globulin Ratio 1.4 (1.0-2.8) Procalcitonin 0.08 (<0.5) ng/mL MDM Narrative Medical decision making narrative: This is a 71-year-old male who presents to the emergency department worsening right hand erythema, swelling, and concern for cellulitis versus tendon sheath infection. Patient was started on azithromycin for right hand cellulitis on 09/30/2021, and was given strict instructions to go to the emergency department if he has any worsening of this. Patient states that his worst allergy to antibiotics as with sulfa, he reports a fine rash with penicillins, has had Rocephin without issue in the past. Patient has a listed problem diabetes but is not on metformin or insulin. He is not anticoagulants, he denies any recent illness, fever, increased fatigue, or arm pain. On exam, his right hand is grossly edematous, erythematous without fluctuance or palpable fluid collection. <Missy Franco, DO - Last Filed: 10/03/21 07:12> Lab Data Labs: Lab Results 10/02/21 10/02/2110/02/22 Range/Units 14:30 14:30 14:30 WBC 8.3 (4.5-11.0) X10^3/uL RBC 4.50 (4.5-5.9) X10^6/uL Hgb 13.8 (13.5-17.5) g/dL Hct 39.1 L (41-53) % MCV 87.0 (80-100) fL MCH 30.7 (26-34) PG MCHC 35.2 (30-36) % RDW 12.5 (11.6-14.8) % Plt Count 292 (150-400) X10^3/uL Neut % (Auto) 67.4 (50-75) % Lymph % (Auto) 22.6 L (25-40) % [place] % (Auto) 6.9 (3-14) % Eos % (Auto) 2.6 (2-4) % Baso % (Auto) 0.5 (0-2) % Neut # (Auto) 5600 (6493-9382) /uL Lymph # (Auto) 1900 (5958-5401) /uL [place] # (Auto) 600 (0-900) /uL Eos # (Auto) 200 (0-450) /uL Baso # (Auto) 0 (0-100) /uL Sodium 136 L (137-145) mmol/L Potassium 4.4 (3.4-5.1) mmol/L Chloride 99 (98-107) mmol/L Carbon Dioxide 29 (22-32) mmol/L BUN 38 H (9-20) mg/dL Creatinine 1.75 H (0.66-1.25) mg/dL Estimated GFR 41 L (>60) mL/min BUN/Creatinine Ratio 21.7 (6-22) Glucose 157 H (80-110) mg/dL Lactate 1.5 (0.7-2.1) mmol/L Calcium 9.5 (8.4-10.2) mg/dL Total Bilirubin 0.5 (0.2-1.3) mg/dL AST 23 (17-59) IU/L ALT 15 (<50) IU/L Alkaline Phosphatase 97 (38-126) U/L C-Reactive Protein 2.8 H (<1.0) mg/dL Total Protein 8.1 (6.3-8.2) g/dL Albumin 4.7 (3.5-5.0) g/dL Globulin 3.4 (1.7-4.1) g/dL Albumin/Globulin Ratio 1.4 (1.0-2.8) Procalcitonin 0.08 (<0.5) ng/mL Imaging Data Extremity x-ray #1: Radiologist's Impression: Signed Patient: Marco Zamarripa MR#: [id number] : 1950 Acct:[id number] Age/Sex: 71 / M Date of Service: 10/02/21 Loc: ED Accession Number: [id number] ?? Procedure: XR hand RT min 3V Ordering Provider: Marta Cano PROCEDURE:? XR HAND RT 2V ? INDICATIONS:? In soft tissue swelling ? TECHNIQUE:? 3 views of the hand(s) acquired.? ? COMPARISON:? None. ? FINDINGS:? ? Bones:? No fractures or dislocations.? Carpal bones are normally aligned.? No suspicious bony lesions.? Triscaphe? and 1st carpometacarpal joint space narrowing with subchondral sclerosis ? Soft tissues:? No suspicious soft tissue calcifications.? Diffuse soft tissue swelling noted without soft tissue gas present. ? ? IMPRESSION:? Diffuse soft tissue swelling without soft tissue gas present. Intercarpal osteoarthritis ? ? Approved by: Shad Moffett M.D. on 10/02/2021 at 14:38? MDM Narrative Medical decision making narrative: This is a 71-year-old male who presents to the emergency department worsening right hand erythema, swelling, and concern for cellulitis versus tendon sheath infection. Patient was started on azithromycin for right hand cellulitis on 09/30/2021, and was given strict instructions to go to the emergency department if he has any worsening of this. Patient states that his worst allergy to antibiotics as with sulfa, he reports a fine rash with penicillins, has had Rocephin without issue in the past. Patient has a listed problem diabetes but is not on metformin or insulin. He is not anticoagulants, he denies any recent illness, fever, increased fatigue, or arm pain. On exam, his right hand is grossly edematous, erythematous without fluctuance or palpable fluid collection. Joan-seen evaluated by myself. Patient's right hand is significantly swollen with no significant erythema no streaking. Pain over wrist. X-ray does not show any gas. He has not had any fever. No leukocytosis. Mild elevation in CRP but I do suspect septic joint really has not had fever. He has multiple allergies to medications a so he was put on azithromycin. However he does okay with cephalosporins. He was given a dose Rocephin here in the ED. possible arthritis flare versus a mild cellulitis. Will try course of cefdinir and prednisone. Encouraged patient to elevate and ice as frequently as possible. Education on worsening signs and symptoms and when to return to ED. Discharge Plan Departure Patient Disposition: Home Clinical Impression: Cellulitis of right hand Instructions: DI for Cellulitis -- Adult Activity Restrictions/Additional Instructions: *You have been diagnosed with right hand cellulitis *What to do: Moves are your hand is so swollen. Please elevate and ice as needed *Continue to take medications as directed--> SENT TO [facility] Cefdinir 300 mg twice a day for 7 days Prednisone 40 mg once a day for 5 days Tylenol 650 mg 3 times a day if needed for pain *Follow up with your primary care provider in 2-3 days or call [phone] *Return to ER if you should have monitor very closely for worsening redness swelling fever streaking or any new, worsening or concerning symptoms Prescriptions: New cefdinir 300 mg capsule 300 mg PO Q12H Qty: 14 0RF prednisone 20 mg tablet 40 mg PO DAILY Qty: 10 0RF No Action nitroglycerin 0.4 mg tablet, sublingual 0.4 mg sublingual Q5M MDD 3 tab PRN (Reason: Chest Pain) Qty: 20 11RF sildenafil (pulm.hypertension) 20 mg tablet 20 - 100 mg PO DAILY PRN (Reason: sexual activity) Qty: 30 11RF Rx Instructions: Take 30 minutes prior to sexual activity. Do not use with nitroglycerin omeprazole 20 mg capsule,delayed release(DR/EC) 20 mg PO DAILY Qty: 90 2RF montelukast 10 mg tablet 10 mg PO DAILY Qty: 90 2RF gabapentin 800 mg tablet 400 mg PO TID Qty: 140 3RF Rx Instructions: Max dose 1400 mg per 24 hours due to kidney function fluticasone propionate [Flonase Allergy Relief] 50 mcg/actuation spray,suspension 1 spray intranasal BID Qty: 16 6RF Rx Instructions: administer into each nostril nystatin 100,000 unit/gram cream 1 applic topical BID Qty: 30 0RF carbamazepine 100 mg tablet extended release 12 hr 100 mg PO BID Qty: 180 3RF lovastatin 20 mg tablet 20 mg PO DAILY Qty: 90 1RF triamcinolone acetonide 0.5 % cream 1 applic topical DAILY Qty: 15 1RF fluticasone propion-salmeterol [Advair Diskus] 250-50 mcg/dose blister with device 1 inh inhalation BID Qty: 180 3RF clonidine HCl 0.2 mg tablet 0.2 mg PO BID Qty: 180 3RF furosemide 40 mg tablet 40 mg PO DAILY Qty: 90 0RF tamsulosin [Flomax] 0.4 mg capsule 0.4 mg PO DAILY 0RF albuterol sulfate 90 mcg/actuation HFA aerosol inhaler 2 puff inhalation Q4-6H PRN (Reason: Shortness Of Breath) 0RF azithromycin 250 mg tablet See Rx Instructions PO .COMPLEX 5 Days Qty: 6 0RF Rx Instructions: take 500 mg today (day 1), then 250 mg for 4 days (days 2-5) PO acetaminophen 325 mg Tablet 650 mg PO TID Qty: 60 0RF aspirin 81 mg Tablet,Delayed Release (Dr/Ec) 81 mg PO BID Qty: 60 0RF (DME) Resmed Airsense 10 CPAP Qty: 1 0RF Dose Instruction: As directed Label Comments: Pressure: 12-16 cmH2O DME: [facility] Rx Instructions: As directed Referrals: Logan Casper MD [Primary Care Provider] - <Missy Franco DO - Last Filed: 10/03/21 07:12> Cosign ED Attending Cosallisonature Attestation: I was immediately available in the department for consultation. Documentation has been reviewed. I agree with assessment and plan.
[2021-10-02 14:38] LABS: Add Manual Diff / Slide Review NO; Basophils Absolute Auto 0 /uL (0-100); Basophils Percent Auto 0.5 % (0-2); Eosinophils Absolute Auto 200 /uL (0-450); Eosinophils Percent Auto 2.6 % (2-4); Hematocrit 39.1 % (41-53); Hemoglobin 13.8 g/dL (13.5-17.5); Lymphocytes Absolute Auto 1900 /uL (1100-4500); Lymphocytes Percent Auto 22.6 % (25-40); Mean Corpuscular HGB Conc 35.2 % (30-36); Mean Corpuscular Hemoglobin 30.7 PG (26-34); Monocytes Absolute Auto 600 /uL (0-900); Monocytes Percent Auto 6.9 % (3-14); Neutrophils Absolute Auto 5600 /uL (1500-7000); Neutrophils Percent Auto 67.4 % (50-75); Platelet Count 292 X10^3/uL (150-400); Red Cell Distribution Width 12.5 % (11.6-14.8); White Blood Cell Count 8.3 X10^3/uL (4.5-11.0)
[2021-10-02] MEDS: cefTRIAXone 1,000 MG in SODIUM CHLORIDE 0.9% 100 ML 200 MG IV (14:38)
[2021-10-02] MEDS: ACETAMINOPHEN 325 MG TABLET 975 MG PO (14:40)
[2021-10-02 14:59] LABS: Alanine Aminotransferase 15 IU/L (<50); Albumin 4.7 g/dL (3.5-5.0); Albumin Globulin Ratio 1.4 (1.0-2.8); Alkaline Phosphatase 97 U/L (38-126); Aspartate Aminotransferase 23 IU/L (17-59); BUN Creatinine Ratio 21.7 (6-22); Bilirubin Total 0.5 mg/dL (0.2-1.3); Blood Urea Nitrogen 38 mg/dL (9-20); C-Reactive Protein Quant 2.8 mg/dL (<1.0); Calcium 9.5 mg/dL (8.4-10.2); Carbon Dioxide 29 mmol/L (22-32); Chloride 99 mmol/L (98-107); Estimated Glomerular Filt Rate 41 mL/min (>60); Globulin 3.4 g/dL (1.7-4.1); Glucose 157 mg/dL (80-110); HEMOLYSIS < 15 (0-50); Potassium 4.4 mmol/L (3.4-5.1); Sodium 136 mmol/L (137-145); Total Protein 8.1 g/dL (6.3-8.2)
[2021-10-02 15:13] LABS: Procalcitonin 0.08 ng/mL (<0.5)
[2021-10-02 15:20] LABS: Lactate (Lactic Acid) 1.5 mmol/L (0.7-2.1)
[2021-10-02] MEDS: methylPREDNISolone 125 MG/2 ML VIAL IV (15:26)
[2021-10-02 16:18] VITALS: BP 164/72; PULSE 59; RESP 18; O2SAT 95
== END 2021-10-02 16:26 | disposition home or self-care (01) ==
PROVIDERS: Nurse Practitioner Critical Care Medicine; Emergency Provider Emergency Medicine; PCP Student in an Organized Health Care Education/Training Program
DX: L03.113 Cellulitis of right upper limb (principal)
CPT/HCPCS: 36415; 73130; 80053; 83605; 84145; 85025; 86140; 96365; 96375; 99284; J0696; J2930

== ENCOUNTER → 2022-01-06 14:28 | Outpatient (CLI) | payer MEDICARE, OTHER, SELFPAY ==
[2021-02-01 10:27] VITALS: BMI 34.8
--- NOTE | 2022-01-06 14:31 | DI.RAD.S_ITS ---
PROCEDURE: XR KNEE RT 3V INDICATIONS: Re-assess known osteoarthritis TECHNIQUE: 3 views of the knee were acquired. COMPARISON: [facility], CR, XR KNEE LT 3V, 04/06/2021, 17:10. [facility], CR, XR KNEE LT 1TO2V, 11/04/2020, 13:46. [facility], CR, XR KNEE ARTHRITIC SERIES LT, 05/27/2020, 10:49. FINDINGS: Bones: No fractures or dislocations. No suspicious bony lesions. Mild tricompartmental periarticular osteophyte formation. Soft tissues: Small joint effusion. No suspicious soft tissue calcifications. IMPRESSION: Small knee joint effusion and minimal joint degeneration. Dictated by: Basim Segundo [facility] Interpreted: Zander Srivastava MD on 01/06/2022 at 15:49 Transcribed by: MELVIN on 01/06/2022 at 15:50 Approved by: Zander Srivastava M.D. on 01/06/2022 at 21:30
== END ==
PROVIDERS: PCP Student in an Organized Health Care Education/Training Program; Referring Provider Student in an Organized Health Care Education/Training Program; Visit Provider Student in an Organized Health Care Education/Training Program
DX: M17.11 Unilateral primary osteoarthritis, right knee (principal); M25.461 Effusion, right knee
CPT/HCPCS: 73562

== ENCOUNTER → 2022-01-20 12:10 | Outpatient (CLI) | payer MEDICARE, OTHER, SELFPAY ==
[2021-02-01 10:27] VITALS: BMI 34.8
[2022-01-20 13:29] LABS: Prostate Specific Antigen 0.134 ng/mL (0.10-4.00)
== END ==
PROVIDERS: PCP Student in an Organized Health Care Education/Training Program; Referring Provider Urology; Visit Provider Urology
DX: C61 Malignant neoplasm of prostate (principal)
CPT/HCPCS: 36415; 84153

== ENCOUNTER → 2022-01-25 11:04 | Outpatient (CLI) | payer MEDICARE, OTHER, SELFPAY ==
[2021-02-01 10:27] VITALS: BMI 34.8
[2022-01-25 12:00] LABS: Hemoglobin A1C% w Est Avg Glu 7.8 % (4.0-6.0)
[2022-01-25 12:05] LABS: BUN Creatinine Ratio 26.8 (6-22); Blood Urea Nitrogen 42 mg/dL (9-20); Estimated Glomerular Filt Rate 47 mL/min (>60)
== END ==
PROVIDERS: PCP Student in an Organized Health Care Education/Training Program; Referring Provider Student in an Organized Health Care Education/Training Program; Visit Provider Student in an Organized Health Care Education/Training Program
DX: E11.9 Type 2 diabetes mellitus without complications (principal); C61 Malignant neoplasm of prostate; R31.29 Other microscopic hematuria; R33.9 Retention of urine, unspecified; Z85.528 Personal history of other malignant neoplasm of kidney; N39.498 Other specified urinary incontinence
CPT/HCPCS: 36415; 51798; 81002; 82565; 83036; 84520; 99214

== ENCOUNTER → 2022-04-05 12:17 | Outpatient (CLI) | payer MEDICARE, OTHER, SELFPAY ==
[2021-02-01 10:27] VITALS: BMI 34.8
--- NOTE | 2022-04-05 12:18 | DI.MRI.S_ITS ---
PROCEDURE: MR KNEE RT WO CON INDICATIONS: RIGHT Knee pain not responding to PT TECHNIQUE: Noncontrast sagittal PD fast spin echo and T2 fast spin echo with fat saturation, sagittal 3-D FLASH with fat saturation; coronal T1 spin echo and PD fast spin echo with fat saturation, and axial PD fast spin echo with fat saturation through the knee. COMPARISON: [facility], CR, XR KNEE RT 3V, 01/06/2022, 14:36. FINDINGS: Image quality: Excellent. Anterior Cruciate Ligament: Intact. Posterior Cruciate Ligament: Intact. Medial Collateral Ligament: Intact. Lateral Collateral Ligament: Intact. Medial Meniscus: There is complex tearing of the medial meniscus. A horizontal oblique component is seen involving the posterior horn and body extending to the inner third of the tibial articular surface. Additional small centrally displaced meniscal flap tear is seen in the posterior horn adjacent to the posterior root attachment. There is no meniscal extrusion. Lateral Meniscus: There is complex tearing of the body and anterior horn of the lateral meniscus. The anterior horn appears diminutive and is most likely a macerated. There is mild extrusion of the lateral meniscal body. Medial and Lateral Tendons: The semimembranosus tendon insertions and meniscocapsular junction appear intact. Visualized portions of the pes anserinus tendons appear normal. No abnormal bursal fluid. The long and short heads of the biceps femoris tendon appear intact. The popliteus tendon appears intact. No signs of posterolateral corner injury. Iliotibial band appears normal. Anterior Structures: The quadriceps and patellar tendons appear intact. 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 The tibial tubercle-trochlear groove distance is approximately 1.6 cm. No significant edema is seen in Hoffa's fat pad. Bones: No acute trabecular bone injury or fracture. Medial Femorotibial Cartilage: There is partial-thickness cartilage thinning and surface irregularity throughout the weight-bearing portion of the medial femorotibial compartment. Lateral Femorotibial Cartilage: Mild partial-thickness cartilage irregularity is seen in the central weight-bearing portion of the lateral femorotibial compartment. Patellofemoral Cartilage: Focal high-grade cartilage loss is seen at the superior aspect of the trochlear groove. There is multifocal partial-thickness cartilage thinning and irregularity in the anterior compartment. Subchondral cystic changes are seen at the lateral patellar facet. Soft Tissues: There is a moderate joint effusion. A moderate medial popliteal cyst is seen with adjacent soft tissue edema that may indicate prior cyst rupture. There is mild generalized grade 2 fatty infiltration of the musculature surrounding the knee. Nonspecific subcutaneous prepatellar soft tissue edema is present. IMPRESSION: 1. Complex tearing of the body and anterior horn of the lateral meniscus, with superimposed degeneration and maceration of the anterior horn. There is mild extrusion of the lateral meniscal body. 2. Complex tearing of the body and posterior horn of the medial meniscus with a horizontal oblique component at the posterior horn and body and a centrally displaced flap fragment at the posterior horn near the posterior root attachment. 3. Tricompartmental osteoarthrosis including grade 3 chondromalacia in the anterior compartment and multifocal grade 2 chondromalacia in the medial and lateral compartments. 4. Congenitally shallow trochlear groove with lateral patellar tilting and mild lateral patellar subluxation. No acute trabecular bone injury. 5. Moderate joint effusion. Moderate medial popliteal cyst with signs of prior cyst rupture. Approved by: Zander Ramirez M.D. on 04/06/2022 at 9:28
== END ==
PROVIDERS: PCP Student in an Organized Health Care Education/Training Program; Referring Provider Student in an Organized Health Care Education/Training Program; Visit Provider Student in an Organized Health Care Education/Training Program
DX: S83.231A Complex tear of medial meniscus, current injury, right knee, initial encounter (principal); S83.271A Complex tear of lateral meniscus, current injury, right knee, initial encounter; M17.11 Unilateral primary osteoarthritis, right knee; M94.261 Chondromalacia, right knee; M25.461 Effusion, right knee; M71.21 Synovial cyst of popliteal space [Baker], right knee; S83.011A Lateral subluxation of right patella, initial encounter; M25.561 Pain in right knee
CPT/HCPCS: 73721

== ENCOUNTER → 2022-04-21 13:52 | Outpatient (CLI) | payer MEDICARE, OTHER, SELFPAY ==
[2021-02-01 10:27] VITALS: BMI 34.8
[2022-04-21 15:54] LABS: BUN Creatinine Ratio 21.7 (6-22); Blood Urea Nitrogen 35 mg/dL (9-20); Estimated Glomerular Filt Rate 45 mL/min (>60)
[2022-04-21 17:41] LABS: Hemoglobin A1C% w Est Avg Glu 6.7 % (4.0-6.0)
== END ==
PROVIDERS: PCP Student in an Organized Health Care Education/Training Program; Referring Provider Student in an Organized Health Care Education/Training Program; Visit Provider Student in an Organized Health Care Education/Training Program
DX: E11.9 Type 2 diabetes mellitus without complications (principal); N18.32 Chronic kidney disease, stage 3b
CPT/HCPCS: 36415; 82565; 83036; 84520

== ENCOUNTER → 2022-07-27 10:33 | Outpatient (CLI) | payer MEDICARE, OTHER, SELFPAY ==
[2021-02-01 10:27] VITALS: BMI 34.8
[2022-07-29 10:06] LABS: Prostate Specific Antigen 0.084 ng/mL (0.10-4.00)
== END ==
PROVIDERS: PCP Student in an Organized Health Care Education/Training Program; Referring Provider Urology; Visit Provider Urology
DX: C61 Malignant neoplasm of prostate (principal)
CPT/HCPCS: 36415; 84153

== ENCOUNTER → 2022-08-01 09:25 | Outpatient (CLI) | payer MEDICARE, OTHER, SELFPAY ==
[2021-02-01 10:27] VITALS: BMI 34.8
[2022-08-01 11:34] LABS: Cholesterol 185 mg/dL (140-199); HDL Cholesterol 34 mg/dL (40-60); Triglycerides 461 mg/dL (35-150)
== END ==
PROVIDERS: PCP Student in an Organized Health Care Education/Training Program; Referring Provider Student in an Organized Health Care Education/Training Program; Visit Provider Student in an Organized Health Care Education/Training Program
DX: E11.9 Type 2 diabetes mellitus without complications (principal); E78.2 Mixed hyperlipidemia; N18.32 Chronic kidney disease, stage 3b
CPT/HCPCS: 36415; 80061; 83036